=== PATIENT | male | born 1965 | race Caucasian/White ===

== ENCOUNTER 2017-05-27 15:01 | Inpatient (IN) | payer SELFPAY ==
[~2017-05-27] VITALS: Ht 170.2 cm; Wt 93.6 kg
[2017-05-27 15:02] VITALS: BP 135/68; PULSE 123; RESP 20; TEMP 98.8; O2SAT 100
[2017-05-27 15:51] VITALS: BP 137/69; PULSE 116; RESP 20; O2SAT 96
[2017-05-27 15:55] VITALS: RESP 20; O2SAT 98
[2017-05-27] MEDS ORDERED: SODIUM CHLOR 0.9% 1000 ML INJ 1,000 ML IV SCH (15:57)
[2017-05-27 15:59] LABS: AUTOMATED NEUTROPHIL # 14.2 TH/MM3 (1.8-7.7); BASOPHIL # 0.1 TH/MM3 (0-0.2); BASOPHIL % 0.5 % (0.0-2.0); EOSINOPHIL # 0.1 TH/MM3 (0-0.4); EOSINOPHIL % 0.6 % (0.0-4.0); HEMATOCRIT 32.1 % (39.0-51.0); HEMO FLAGS DIFF FINAL; LYMPH % 8.7 % (9.0-44.0); LYMPHOCYTE # 1.5 TH/MM3 (1.0-4.8); MEAN CORPUSCULAR HEMOGLOBIN 28.8 PG (27.0-34.0); MEAN CORPUSCULAR HGB CONC 32.7 % (32.0-36.0); MONO % 7.6 % (0.0-8.0); NEUT % 82.6 % (16.0-70.0); PLATELET COUNT 161 TH/MM3 (150-450); RED BLOOD COUNT 3.64 MIL/MM3 (4.50-5.90); RED CELL DISTRIBUTION WIDTH 17.3 % (11.6-17.2); WHITE BLOOD COUNT 17.2 TH/MM3 (4.0-11.0)
[2017-05-27] MEDS ORDERED: FAMOTIDINE 20 MG/2 ML VIAL IV PUSH ONE (16:00)
[2017-05-27] MEDS ORDERED: ONDANSETRON HCL 4 MG/2 ML VIAL IVP ONE (16:00)
[2017-05-27] MEDS ORDERED: THIAMINE INJ 100 MG in SODIUM CHLORIDE 0.9% INJ 100 ML IV ONE (16:00)
--- NOTE | 2017-05-27 16:06 | PD ---
HPI Chief Complaint: GI Complaint Time Seen by Provider: 15:46 Travel History International Travel<30 days: No Contact w/Intl Traveler<30days: No Traveled to known affect area: No History of Present Illness HPI 49-year-old male complains of generalized malaise and weakness, shortness of breath, abdominal pain and black tarry stool. Patient has history alcohol abuse. Patient states that his last drink was 2 days ago. Patient has history GI bleed from esophageal varices in 2012. Patient denies any headache. Patient denies any chest pain. Patient states that he has shortness of breath and dyspnea on exertion. Patient states that he has mild intermittent abdominal discomfort. Patient denies any back pain. Patient denies any dysuria or frequency. Patient denies any fever chills. PFSH Past Medical History Cirrhosis: Yes Diminished Hearing: No Tetanus Vaccination: > 5 Years Influenza Vaccination: No Past Surgical History Tonsillectomy: Yes Other Surgery: Yes Social History Alcohol Use: Yes Tobacco Use: Yes (1 PPD) Substance Use: No Allergies-Medications (Allergen,Severity, Reaction): Coded Allergies: No Known Allergies (Unverified , 05/27/17) Reported Meds & Prescriptions Reported Meds & Active Scripts Active No Active Prescriptions or Reported Medications Review of Systems General / Constitutional: No: Fever Eyes: No: Visual changes HENT: No: Headaches Cardiovascular: No: Chest Pain or Discomfort Respiratory: No: Shortness of Breath Gastrointestinal: Positive: Abdominal Pain, Hematochezia Genitourinary: No: Dysuria Musculoskeletal: No: Pain Skin: No Rash Neurologic: No: Weakness Psychiatric: No: Depression Endocrine: No: Polydipsia Hematologic/Lymphatic: No: Easy Bruising Physical Exam Narrative GENERAL: Well-nourished, well-developed patient. SKIN: Focused skin assessment warm/dry. HEAD: Normocephalic. EYES: No scleral icterus. No injection or drainage. NECK: Supple, trachea midline. No JVD or lymphadenopathy. CARDIOVASCULAR: Regular rate and rhythm without murmurs, gallops, or rubs. RESPIRATORY: Breath sounds equal bilaterally. No accessory muscle use. GASTROINTESTINAL: Abdomen soft, non-tender, nondistended. Rectal exam Hemoccult positive. MUSCULOSKELETAL: No cyanosis, or edema. BACK: Nontender without obvious deformity. No CVA tenderness. Neurologic exam: Patient's awake alert oriented 3. No obvious focal neurological deficit. Data Data Last Documented VS Vital Signs Date Time Temp Pulse Resp B/P (MAP) Pulse Ox O2 Delivery O2 Flow Rate FiO2 05/27/17 17:56 99 20 135/70 (91) 96 Room Air 05/27/17 15:02 98.8 Orders Orders Complete Blood Count With Diff (05/27/17 15:25) Comprehensive Metabolic Panel (05/27/17 15:25) Prothrombin Time / Inr (Pt) (05/27/17 15:25) Act Partial Throm Time (Ptt) (05/27/17 15:25) Ecg Monitoring (05/27/17 15:25) Orthostatic Vital Signs (05/27/17 15:25) Oximetry (05/27/17 15:25) Oxygen Administration (05/27/17 15:25) Iv Access Insert/Monitor (05/27/17 15:25) Type And Screen (05/27/17 15:25) Electrocardiogram (05/27/17 ) Lipase (05/27/17 15:28) Urinalysis - C+S If Indicated (05/27/17 15:53) Chest, Single Ap (05/27/17 15:53) Alcohol (Ethanol) (05/27/17 15:53) Ondansetron Inj (Zofran Inj) (05/27/17 16:00) Sodium Chlor 0.9% 1000 Ml Inj (Ns 1000 M (05/27/17 15:57) Famotidine Inj (Pepcid Inj) (05/27/17 16:00) Thiamine Inj (Thiamine Inj) (05/27/17 16:00) Sodium Chlorid 0.9%... W/Octreotide Inj (05/27/17 16:11) Labs Laboratory Tests Test 05/27/17 15:01 05/27/17 16:04 White Blood Count 17.2 TH/MM3 Red Blood Count 3.64 MIL/MM3 Hemoglobin 10.5 GM/DL Hematocrit 32.1 % Mean Corpuscular Volume 88.0 FL Mean Corpuscular Hemoglobin 28.8 PG Mean Corpuscular Hemoglobin Concent 32.7 % Red Cell Distribution Width 17.3 % Platelet Count 161 TH/MM3 Mean Platelet Volume 10.9 FL Neutrophils (%) (Auto) 82.6 % Lymphocytes (%) (Auto) 8.7 % Monocytes (%) (Auto) 7.6 % Eosinophils (%) (Auto) 0.6 % Basophils (%) (Auto) 0.5 % Neutrophils # (Auto) 14.2 TH/MM3 Lymphocytes # (Auto) 1.5 TH/MM3 Monocytes # (Auto) 1.3 TH/MM3 Eosinophils # (Auto) 0.1 TH/MM3 Basophils # (Auto) 0.1 TH/MM3 CBC Comment DIFF FINAL Differential Comment Prothrombin Time 14.8 SEC Prothromb Time International Ratio 1.3 RATIO Activated Partial Thromboplast Time 23.2 SEC Blood Urea Nitrogen 59 MG/DL Creatinine 1.28 MG/DL Random Glucose 154 MG/DL Total Protein 7.5 GM/DL Albumin 3.3 GM/DL Calcium Level 8.8 MG/DL Alkaline Phosphatase 89 U/L Aspartate Amino Transf (AST/SGOT) 71 U/L Alanine Aminotransferase (ALT/SGPT) 45 U/L Total Bilirubin 2.2 MG/DL Sodium Level 137 MEQ/L Potassium Level 5.0 MEQ/L Chloride Level 103 MEQ/L Carbon Dioxide Level 21.8 MEQ/L Anion Gap 12 MEQ/L Estimat Glomerular Filtration Rate 60 ML/MIN Ethyl Alcohol Level LESS THAN 3 MG/DL Lipase 355 U/L [facility] Medical Decision Making Medical Screen Exam Complete: Yes Emergency Medical Condition: Yes Interpretation(s) Last Impressions Chest X-Ray 05/27/17 5283 Signed Impressions: Service Date/Time: April 15:59 - CONCLUSION: 1. No acute cardiopulmonary findings. Rick Navas MD 1846 PM. CBC WBC 17.2. Hemoglobin 10.5 hematocrit 32.1. 82 neutrophil. CMP within normal limit. BUN 59. AST 71. Total bili 2.2. INR 1.3. Alcohol Less than 3. Differential Diagnosis Differential diagnosis including GI bleed, dehydration, electrolyte imbalance, anemia, alcohol withdrawal. Narrative Course 49-year-old male generalized malaise and weakness, shortness of breath, abdominal discomfort, black tarry stool. Normal saline solution and 25 cc an hour. Pepcid 20 mg IV. Octreotide drip started. Thiamine 100 mg IV. HemaPrompt Point of Care Internal Pos. & Neg. Controls: Passed Fecal Specimen Occult Blood: Positive Diagnosis Primary Impression: GI bleed Qualified Codes: K92.2 - Gastrointestinal hemorrhage, unspecified Additional Impression: History of alcohol abuse Admitting Information Admitting Physician Requests: Observation Scripts No Active Prescriptions or Reported Meds Chilango Moyer MD May 27, 2017 16:06
[2017-05-27 16:20] LABS: ALT (GPT) 45 U/L (12-78); ANION GAP 12 MEQ/L (5-15); AST (GOT) 71 U/L (15-37); BICARBONATE 21.8 MEQ/L (21.0-32.0); BLOOD UREA NITROGEN 59 MG/DL (7-18); CHLORIDE 103 MEQ/L (98-107); GLOMERULAR FILTRATION RATE 60 ML/MIN (>89); SODIUM (NA) 137 MEQ/L (136-145)
[2017-05-27 16:22] LABS: ALKALINE PHOSPHATASE 89 U/L (45-117); TOTAL BILIRUBIN ADULT 2.2 MG/DL (0.2-1.0)
[2017-05-27 16:23] LABS: APTT (PATIENT) 23.2 SEC (24.3-30.1); INTERNATIONAL NORMALIZED RATIO 1.3 RATIO; PROTHROMBIN TIME - PATIENT 14.8 SEC (9.8-11.6)
--- NOTE | 2017-05-27 16:34 | RADRPT ---
EXAM DATE/TIME: 05/27/2017 15:59 [facility] COMPARISON: No previous studies available for comparison. INDICATIONS : Short of breath MEDICAL HISTORY : Cirrhosis. SURGICAL HISTORY : None. ENCOUNTER: Initial ACUITY: 2 days PAIN SCORE: 5/10 LOCATION: Right lower quadrant abdomen FINDINGS: A single view of the chest demonstrates the lungs to be symmetrically aerated without evidence of mas s, infiltrate or effusion. The cardiomediastinal contours are unremarkable. Osseous structures are intact. CONCLUSION: 1. No acute cardiopulmonary findings. Rick Navas MD on May 27, 2017 at 16:32 Board Certified Radiologist. This report was verified electronically.
[2017-05-27] MEDS: OCTREOTIDE INJ 500 MCG in SODIUM CHLORID 0.9% 500 ML INJ 500 ML IV SCH (17:04)
[2017-05-27 17:56] VITALS: BP 135/70; PULSE 99; RESP 20; O2SAT 96
[2017-05-27 19:41] LABS: BLOOD, URINE NEG (NEG); COMMENT (UR) CULT NOT INDICATED; CULTURE IF INDICATED CULT NOT INDICATED; GLUCOSE,URINE NEG (NEG); KETONE, URINE 10 mg/dL (NEG); NITRITE,URINE NEG (NEG); SQUAMOUS EPITHELIAL CELL URINE <1 /hpf (0-5); URINE COLOR YELLOW (YELLW/STRAW)
[2017-05-27] MEDS ORDERED: SODIUM CHLORIDE 0.9% FLUSH 10 ML FLUSH IV FLUSH PRN (20:30)
[2017-05-27] MEDS ORDERED: NALOXONE HCL 0.4 MG/ML AMP IV PUSH PRN (20:30)
--- NOTE | 2017-05-27 21:06 | HHI.HP ---
[facility] No Primary Care Physician Admission Diagnosis upper GI bleed. History of alcohol abuse. Diagnoses: Chief Complaint: fatigue, short of breath Travel History International Travel<30 Days: No Contact w/Intl Traveler <30 Da: No Traveled to Known Affected Are: No History of Present Illness Written by JOZEF Cantu acting as scribe for [Yuko] on 05/27/17 at 20: 58. 49 y/o male with a history of esophageal varices banding, and cirrhosis (last paracentesis 2012) presented to the ED with complaints of weakness and short of breath. Patient states for the last 2 days he has been very weak, dizzy, short of breath and nausea. He states he does have palpitations with the short of breath. He states he also has tarry stools several times a day. Denies any nausea, vomiting, fever or chills. He states he still drinks about 2-3 times a week, and is not on any medications for portal hypertension. Review of Systems Except as stated in HPI: all other systems reviewed are Neg Past Family Social History Past Medical History esophageal varices banding cirrhosis (last paracentesis 2012) Past Surgical History Tonsillectomy Esophageal banding Ulna nerve repair Vasectomy Pilonidal cyst R knee cartilage removed Reported Medications Reported Meds & Active Scripts Active No Active Prescriptions or Reported Medications Allergies: Coded Allergies: No Known Allergies (Unverified , 05/27/17) Active Ordered Medications Current Medications Medications (Trade) Dose Ordered Sig/Koby Route Start Time Stop Time Status Last Admin Sodium Chloride 1,000 ml @ 125 mls/hr Q8H IV 05/27/17 15:57 05/27/17 23:56 05/27/17 16:11 Octreotide Acetate 500 mcg/ Sodium Chloride 500.5 ml @ 50 mls/hr Q10H1M IV 05/27/17 16:11 05/27/17 17:04 Sodium Chloride 1,000 ml @ 100 mls/hr Q10H IV 05/27/17 20:22 (NS Flush) 2 ml UNSCH PRN IV FLUSH 05/27/17 20:30 (NS Flush) 2 ml BID IV FLUSH 05/27/17 21:00 (Narcan Inj) 0.4 mg UNSCH PRN IV PUSH 05/27/17 20:30 (Vitamin B1) 100 mg DAILY PO 05/28/17 09:00 Pantoprazole Sodium 80 mg/ Sodium Chloride 35 ml @ 420 mls/hr Q5M ONCE IV 05/27/17 21:29 05/27/17 21:33 Pantoprazole Sodium 80 mg/ Sodium Chloride 100 ml @ 10 mls/hr Q10H IV 05/27/17 21:29 Family History Mom: DM Dad: Prostate issues Social History Tobacco use: 1 PPD Alcohol use: 2-3 times a week, 3 cocktails Illicit drug use: Denies Physical Exam Vital Signs Vital Signs Date Time Temp Pulse Resp B/P (MAP) Pulse Ox O2 Delivery O2 Flow Rate FiO2 05/27/17 17:56 99 20 135/70 (91) 96 Room Air 05/27/17 15:55 20 98 Room Air 05/27/17 15:51 116 20 137/69 (91) 96 Room Air 05/27/17 15:02 98.8 123 20 135/68 (90) 100 Room Air Physical Exam GENERAL: This is a well-nourished, well-developed patient, in no apparent distress. SKIN: No rashes, ecchymoses or lesions. Cool and dry. HEAD: Atraumatic. Normocephalic. EYES: Pupils equal round and reactive. ENT: Nose without bleeding, purulent drainage or septal hematoma. Airway patent. NECK: Trachea midline. No JVD or lymphadenopathy. CARDIOVASCULAR: Regular rate and rhythm without murmurs, gallops, or rubs. RESPIRATORY: Clear to auscultation. Breath sounds equal bilaterally. No wheezes , rales, or rhonchi. GASTROINTESTINAL: Abdomen soft, tender, and mildly distended. No guarding. + ascites MUSCULOSKELETAL: Extremities without clubbing, cyanosis, or edema. No calf tenderness. NEUROLOGICAL: Awake and alert. Motor and sensory grossly within normal limits. Normal speech. Laboratory Laboratory Tests Test 05/27/17 15:01 05/27/17 16:04 05/27/17 18:55 White Blood Count 17.2 Red Blood Count 3.64 Hemoglobin 10.5 Hematocrit 32.1 Mean Corpuscular Volume 88.0 Mean Corpuscular Hemoglobin 28.8 Mean Corpuscular Hemoglobin Concent 32.7 Red Cell Distribution Width 17.3 Platelet Count 161 Mean Platelet Volume 10.9 Neutrophils (%) (Auto) 82.6 Lymphocytes (%) (Auto) 8.7 Monocytes (%) (Auto) 7.6 Eosinophils (%) (Auto) 0.6 Basophils (%) (Auto) 0.5 Neutrophils # (Auto) 14.2 Lymphocytes # (Auto) 1.5 Monocytes # (Auto) 1.3 Eosinophils # (Auto) 0.1 Basophils # (Auto) 0.1 CBC Comment DIFF FINAL Differential Comment Prothrombin Time 14.8 Prothromb Time International Ratio 1.3 Activated Partial Thromboplast Time 23.2 Blood Urea Nitrogen 59 Creatinine 1.28 Random Glucose 154 Total Protein 7.5 Albumin 3.3 Calcium Level 8.8 Alkaline Phosphatase 89 Aspartate Amino Transf (AST/SGOT) 71 Alanine Aminotransferase (ALT/SGPT) 45 Total Bilirubin 2.2 Sodium Level 137 Potassium Level 5.0 Chloride Level 103 Carbon Dioxide Level 21.8 Anion Gap 12 Estimat Glomerular Filtration Rate 60 Ethyl Alcohol Level LESS THAN 3 Lipase 355 Urine Color YELLOW Urine Turbidity CLEAR Urine pH 6.0 Urine Specific Moyers 1.022 Urine Protein NEG Urine Glucose (UA) NEG Urine Ketones 10 Urine Occult Blood NEG Urine Nitrite NEG Urine Bilirubin NEG Urine Urobilinogen LESS THAN 2.0 Urine Leukocyte Esterase NEG Urine WBC LESS THAN 1 Urine Squamous Epithelial Cells <1 Microscopic Urinalysis Comment CULT NOT INDICATED Result Diagram: 05/27/17 1501 05/27/17 1501 Imaging Last Impressions Chest X-Ray 05/27/17 1553 Signed Impressions: Service Date/Time: April 15:59 - CONCLUSION: 1. No acute cardiopulmonary findings. Rick Navas MD Caprini VTE Risk Assessment Caprini VTE Risk Assessment: Mod/High Risk (score >= 2) VTE Pharm Contraindication: Active bleeding Caprini Risk Assessment Model Point Value = 1 Point Value = 2 Point Value = 3 Point Value = 5 Age 41-60 Minor surgery BMI > 25 kg/m2 Swollen legs Varicose veins or History of unexplained or recurrent spontaneous Oral contraceptives or hormone replacement Sepsis (< 1 month) Serious lung disease, including pneumonia (< 1 month) Abnormal pulmonary function Acute myocardial infarction Congestive heart failure (< 1 month) History of inflammatory bowel disease Medical patient at bed rest Age 61-74 Arthroscopic surgery Major open surgery (> 45 min) Laparoscopic surgery (> 45 min) Malignancy Confined to bed (> 72 hours) Immobilizing plaster cast Central venous access Age >= 75 History of VTE Family history of VTE Factor V Leiden Prothrombin [id number] Lupus anticoagulant Anticardiolipin antibodies Elevated serum homocysteine Heparin-induced thrombocytopenia Other congenital or acquired thrombophilia Stroke (< 1 month) Elective arthroplasty Hip, pelvis, or leg fracture Acute spinal cord injury (< 1 month) Prophylaxis Regimen Total Risk Factor Score Risk Level Prophylaxis Regimen 0-1 Low Early ambulation 2 Moderate Order ONE of the following: *Sequential Compression Device (SCD) *Heparin 5000 units SQ BID 3-4 Higher Order ONE of the following medications: *Heparin 5000 units SQ TID *Enoxaparin/Lovenox 40 mg SQ daily (WT < 150 kg, CrCl > 30 mL/min) *Enoxaparin/Lovenox 30 mg SQ daily (WT < 150 kg, CrCl > 10-29 mL/min) *Enoxaparin/Lovenox 30 mg SQ BID (WT < 150 kg, CrCl > 30 mL/min) AND/OR *Sequential Compression Device (SCD) 5 or more Highest Order ONE of the following medications: *Heparin 5000 units SQ TID (Preferred with Epidurals) *Enoxaparin/Lovenox 40 mg SQ daily (WT < 150 kg, CrCl > 30 mL/min) *Enoxaparin/Lovenox 30 mg SQ daily (WT < 150 kg, CrCl > 10-29 mL/min) *Enoxaparin/Lovenox 30 mg SQ BID (WT < 150 kg, CrCl > 30 mL/min) AND *Sequential Compression Device (SCD) Assessment and Plan Problem List: (1) GI bleed ICD Code: K92.2 - Gastrointestinal hemorrhage, unspecified Status: Acute (2) History of alcohol abuse ICD Code: Z87.898 - Personal history of other specified conditions Status: Chronic Assessment and Plan 49 y/o male with a history of esophageal varices banding, and cirrhosis (last paracentesis 2012) presented to the ED with complaints of weakness and short of breath. GI Bleed, acute, Hgb 10.5 --> 9.9, patient states he has black tarry stools -Consult GI -Serial H&H -Pepsid IV given in ED, Protonix drip and Sandostatin drip started -NPO -Transfuse 2 units now due to active bleeding, drop in hemoglobin Leukocytosis, wbc 17.2, likely reactive -Labs in AM Alcohol abuse -Encouraged to quit -Withdrawal precautions -Thiamine IV daily DVT prophylaxis: SCDs, hold chemical due to bleeding This note was transcribed by scribe [Roxanna Del Toro]. I, Dr. Nabila Huntley personally performed the history, physical exam, and medical decision making; and confirmed the accuracy of the information in the transcribed note. Authenticated by Dr. Nabila Huntley on 05/27/17 at 20:58. Discussed Condition With Patient and RN Physician Certification 2 Midnight Certification Type: Admission for Inpatient Services Order for Inpatient Services The services are ordered in accordance with Medicare regulations or non- Medicare payer requirements, as applicable. In the case of services not specified as inpatient-only, they are appropriately provided as inpatient services in accordance with the 2-midnight benchmark. Estimated LOS (days): 2 days is the estimated time the patient will need to remain in the hospital, assuming treatment plan goals are met and no additional complications. Post-Hospital Plan: Home Problem Qualifiers (1) GI bleed: Qualified Codes: K92.2 - Gastrointestinal hemorrhage, unspecified Roxanna Del Toro May 27, 2017 21:06 Nabila Huntley MD May 28, 2017 10:20
[2017-05-27] MEDS ORDERED: PANTOPRAZOLE INJ 80 MG in SODIUM CHLORIDE 0.9% INJ 35 ML IV ONE (21:29)
[2017-05-27 21:40] LABS: REVIEW FLAG FINAL
[2017-05-27 21:45] VITALS: BP 123/69; PULSE 90; RESP 18; TEMP 98.5; O2SAT 96
[2017-05-27] MEDS: SODIUM CHLOR 0.9% 1000 ML INJ 1,000 ML IV SCH (22:42)
[2017-05-27] MEDS: SODIUM CHLORIDE 0.9% FLUSH 10 ML FLUSH IV FLUSH SCH (22:42)
[2017-05-27] MEDS ORDERED: SODIUM CHLOR 0.9% 250 ML INJ 250 ML IV ONE (22:45)
[2017-05-28] VITALS (11 sets, daily range): BP systolic 98–121; BP diastolic 59–97; PULSE 73–95; RESP 16–18; TEMP 97.1–98.1; O2SAT 95–100
[2017-05-28] MEDS: PANTOPRAZOLE INJ 80 MG in SODIUM CHLORIDE 0.9% INJ 100 ML IV SCH ×3 (00:17→17:29)
[2017-05-28] MEDS: OCTREOTIDE INJ 500 MCG in SODIUM CHLORID 0.9% 500 ML INJ 500 ML IV SCH ×3 (03:02→21:17)
[2017-05-28] MEDS: SODIUM CHLOR 0.9% 1000 ML INJ 1,000 ML IV SCH ×3 (06:22→16:22)
[2017-05-28] MEDS: THIAMINE HCL 100 MG TAB PO SCH (08:46)
[2017-05-28] MEDS: SODIUM CHLORIDE 0.9% FLUSH 10 ML FLUSH IV FLUSH SCH ×2 (08:47→21:17)
--- NOTE | 2017-05-28 10:16 | EKG ---
Date Performed: 05/27/2017 Time Performed: 15:32:01 PTAGE: 49 years EKG: SINUS TACHYCARDIA POSSIBLE LEFT ATRIAL ENLARGEMENT INDETERMINATE AXIS POSSIBLE RIGHT VENTRI CULAR CONDUCTION DELAY ABNORMAL RHYTHM ECG NO PREVIOUS TRACING DOCTOR: Robinson Lin Interpretating Date/Time 05/28/2017 10:12:33
--- NOTE | 2017-05-28 10:39 | HHI.PR ---
Subjective Remarks no complains of abdominal pain or fever or chills black tarry stools last evening history of cirrhosis secondary to alcohol diagnosed in 2013- in [place] last episode of GIB then- band ligation done- for esophageal varices- 2012 last drink was 3 days ago Objective Vitals Vital Signs Date Time Temp Pulse Resp B/P (MAP) Pulse Ox O2 Delivery O2 Flow Rate FiO2 05/28/17 08:00 97.4 80 16 112/59 (76) 98 05/28/17 07:35 97.4 80 16 112/59 97 05/28/17 05:10 97.5 79 16 111/60 96 05/28/17 04:54 97.7 77 18 101/62 99 05/28/17 03:40 97.8 85 18 116/65 96 05/28/17 01:05 98.1 90 17 121/66 98 05/28/17 00:45 98.1 95 18 119/69 97 05/27/17 23:38 05/27/17 21:45 98.5 90 18 123/69 (87) 96 05/27/17 17:56 99 20 135/70 (91) 96 Room Air 05/27/17 15:55 20 98 Room Air 05/27/17 15:51 116 20 137/69 (91) 96 Room Air 05/27/17 15:02 98.8 123 20 135/68 (90) 100 Room Air I/O 05/27/17 05/27/17 05/27/17 05/28/17 05/28/17 05/28/17 07:00 15:00 23:00 07:00 15:00 23:00 Intake Total 0 ml 973 ml 402 ml Output Total 500 ml 450 ml Balance -500 ml 523 ml 402 ml Intake Oral 0 ml 0 ml IV Total 553 ml Packed Cells 400 ml 400 ml Blood Product IV Normal Saline Flush 20 ml 2 ml Output Urine Total 500 ml 450 ml # Bowel Movements 0 0 Result Diagram: 05/27/17212005/27/17 1501 Imaging Last Impressions Chest X-Ray 05/27/17 1553 Signed Impressions: Service Date/Time: April 15:59 - CONCLUSION: 1. No acute cardiopulmonary findings. Rcik Navas MD Objective Remarks awake and alert, anicteric lungs clear regular rhythm abdomen- soft, good bowel sounds, nontender, + fluid wave extremities no edema no scrotal swelling neuro exam- non focal A/P Problem List: (1) GI bleed ICD Code: K92.2 - Gastrointestinal hemorrhage, unspecified Status: Acute (2) History of alcohol abuse ICD Code: Z87.898 - Personal history of other specified conditions Status: Chronic Assessment and Plan 49 y/o male with a history of esophageal varices banding, and cirrhosis (last paracentesis 2012) presented to the ED with complaints of weakness and short of breath. GI Bleed, acute, Hgb 10.5 --> 9.9. History of GIB secondary to varices from alcoholic liver cirrhosis Acute anemia -Consult GI. get US -Serial H&H S/P 2 units RBC - Protonix drip and Sandostatin drip started -NPO -S/P Transfuse 2 units now due to active bleeding, drop in hemoglobin -check CBCnow Leukocytosis, wbc 17.2, likely reactive R/o SBP with ascites on exam get US of abdomen- check for ascite- if significant - do paracentesis with fluid studies CBC today PRAVEENA secondary to GI bleeding and likely poor po with chronic alcohlism on gentle hydration ff BMP todfay Alcohol abuse -Encouraged to quit. CIWAprotocol -Withdrawal precautions -Thiamine IV daily DVT prophylaxis: SCDs, hold chemical due to bleeding Problem Qualifiers (1) GI bleed: Qualified Codes: K92.2 - Gastrointestinal hemorrhage, unspecified Macario Grayson MD May 28, 2017 10:39
[2017-05-28] MEDS ORDERED: LORazepam 2 MG/ML VIAL IV PUSH PRN ×4 (10:45)
[2017-05-28] MEDS ORDERED: SODIUM CHLORIDE 0.9% FLUSH 10 ML FLUSH IV FLUSH PRN (10:45)
[2017-05-28] MEDS ORDERED: LORazepam 2 MG TAB PO PRN (10:45)
[2017-05-28] MEDS ORDERED: FLUMAZENIL 0.5 MG/5 ML VIAL IV PUSH PRN (10:45)
[2017-05-28] MEDS ORDERED: LORazepam 1 MG TAB PO PRN (10:45)
--- NOTE | 2017-05-28 11:51 | RADRPT ---
EXAM DATE/TIME: 05/28/2017 10:47 [facility] COMPARISON: No previous studies available for comparison. INDICATIONS : Cirrhosis. MEDICAL HISTORY : Hypertension. Cirrhosis. Esopageal varices. SURGICAL HISTORY : Tonsillectomy. Esophageal banding. Right arm surgery. Left knee surgery. ENCOUNTER: Initial ACUITY: 3 days PAIN SCORE: 0/10 LOCATION: Abdomen. MEASUREMENTS: LIVER: 19.5 cm length COMMON DUCT: 4 mm RIGHT KIDNEY: 10.8 x 5.8 x 5.2 cm LEFT KIDNEY: 11.6 x 6.8 x 6.1 cm SPLEEN: 12.9 cm length AORTA: 1.9cm maximal FINDINGS: LIVER: The liver appears somewhat large. There is heterogeneous echotexture. COMMON DUCT: No intraluminal mass or stone visualized. GALLBLADDER: There is some mild thickening of the gallbladder wall. No significant pericholecystic fluid or stones are identified. PANCREAS: The visualized portions are within normal limits. RIGHT KIDNEY: There is no hydronephrosis. The exam does demonstrate a 1.2 x 0.5 x 1.0 cm calcification in the midpo le. LEFT KIDNEY: No hydronephrosis, stone or mass. SPLEEN: No focal lesion. AORTA: Non aneurysmal. IVC: Within normal limits. CONCLUSION: 1. Mild thickening of the gallbladder wall but no stones or sludge identified. 2. Enlarged liver with heterogeneous echotexture. No mass or biliary obstruction seen. 3. 1.2 x 0.5 x 1.0 cm stone seen in the midpole of the right kidney. There is no hydronephrosis. Rick Navas MD on May 28, 2017 at 11:46 Board Certified Radiologist. This report was verified electronically.
[2017-05-28] MEDS ORDERED: PROPOFOL 200 MG/20 ML AMP IV ONE (12:00)
[2017-05-28] MEDS ORDERED: LIDOCAINE HCL 1% PF 5 ML AMPULE OTHER ONE (12:00)
--- NOTE | 2017-05-28 14:16 | PD.CONS ---
HPI History of Present Illness This is a 49 year old male with hx UGIB who presented with wewakness, SOB, black tarry stool. His noticed black stools 2 d ago and yesterday experienced some nausea and lack of energy and SOB. Denies vomiting, abd pain, weight loss. Denies NSAID use. Had EGD and colonoscopy in 2013 in [place] but can recall no details other than that the EGD was for bleeding and bands or clips were applied. He had been having black stool at that time. He says he was formerly a heavy drinker but currently has 2-3 vodka drinks 2-3 times per week. He denies other health problems but per EMR he does have history of cirrhosis and has had parecentesis in past. (Ju Pena) PFSH Past Medical History esophageal varices banding cirrhosis (last paracentesis 2012) Past Surgical History Tonsillectomy Esophageal banding Ulna nerve repair Vasectomy Pilonidal cyst R knee cartilage removed (Ju Pena) Coded Allergies: No Known Allergies (Unverified , 05/27/17) Family History Mom: DM Dad: Prostate issues Social History Tobacco use: 1 PPD Alcohol use: 2-3 times a week, 3 cocktails Illicit drug use: Denies (Ju Pena) Review of Systems Constitutional: COMPLAINS OF: Fatigue, DENIES: Fever Eyes: DENIES: Blurred vision Ears, nose, mouth, throat: DENIES: Hearing loss Respiratory: DENIES: Hemoptysis Cardiovascular: DENIES: Chest pain Gastrointestinal: COMPLAINS OF: Black stools, Nausea, DENIES: Abdominal pain, Bloody stools, Constipation, Diarrhea, Vomiting, Hematemesis Genitourinary: DENIES: Hematuria Musculoskeletal: DENIES: Joint Swelling Integumentary: DENIES: Jaundice Neurologic: DENIES: Abnormal gait Psychiatric: DENIES: Confusion (Ju Pena) GI Exam Vitals I&O Vital Signs Date Time Temp Pulse Resp B/P (MAP) Pulse Ox O2 Delivery O2 Flow Rate FiO2 05/28/17 08:00 97.4 80 16 112/59 (76) 98 05/28/17 07:35 97.4 80 16 112/59 97 05/28/17 05:10 97.5 79 16 111/60 96 05/28/17 04:54 97.7 77 18 101/62 99 05/28/17 03:40 97.8 85 18 116/65 96 05/28/17 01:05 98.1 90 17 121/66 98 05/28/17 00:45 98.1 95 18 119/69 97 05/27/17 23:38 05/27/17 21:45 98.5 90 18 123/69 (87) 96 05/27/17 17:56 99 20 135/70 (91) 96 Room Air 05/27/17 15:55 20 98 Room Air 05/27/17 15:51 116 20 137/69 (91) 96 Room Air 05/27/17 15:02 98.8 123 20 135/68 (90) 100 Room Air I/O 05/27/17 05/27/17 05/27/17 05/28/17 05/28/17 05/28/17 07:00 15:00 23:00 07:00 15:00 23:00 Intake Total 0 ml 973 ml 402 ml Output Total 500 ml 450 ml Balance -500 ml 523 ml 402 ml Intake Oral 0 ml 0 ml IV Total 553 ml Packed Cells 400 ml 400 ml Blood Product IV Normal Saline Flush 20 ml 2 ml Output Urine Total 500 ml 450 ml # Bowel Movements 0 0 Imaging Last Impressions Abdomen Ultrasound 05/28/17 0000 Signed Impressions: Service Date/Time: Sunday, May 28, 2017 10:47 - CONCLUSION: 1. Mild thickening of the gallbladder wall but no stones or sludge identified. 2. Enlarged liver with heterogeneous echotexture. No mass or biliary obstruction seen. 3. 1.2 x 0.5 x 1.0 cm stone seen in the midpole of the right kidney. There is no hydronephrosis. Rick Navas MD Chest X-Ray 05/27/17 1553 Signed Impressions: Service Date/Time: April 15:59 - CONCLUSION: 1. No acute cardiopulmonary findings. Rick Navas MD Laboratory Test 05/27/17 15:01 05/27/17 16:04 05/27/17 18:55 05/27/17 21:21 White Blood Count 17.2 TH/MM3 Red Blood Count 3.64 MIL/MM3 Hemoglobin 10.5 GM/DL 9.9 GM/DL Hematocrit 32.1 % 31.0 % Mean Corpuscular Volume 88.0 FL Mean Corpuscular Hemoglobin 28.8 PG Mean Corpuscular Hemoglobin Concent 32.7 % Red Cell Distribution Width 17.3 % Platelet Count 161 TH/MM3 Mean Platelet Volume 10.9 FL Neutrophils (%) (Auto) 82.6 % Lymphocytes (%) (Auto) 8.7 % Monocytes (%) (Auto) 7.6 % Eosinophils (%) (Auto) 0.6 % Basophils (%) (Auto) 0.5 % Neutrophils # (Auto) 14.2 TH/MM3 Lymphocytes # (Auto) 1.5 TH/MM3 Monocytes # (Auto) 1.3 TH/MM3 Eosinophils # (Auto) 0.1 TH/MM3 Basophils # (Auto) 0.1 TH/MM3 CBC Comment DIFF FINAL Differential Comment Prothrombin Time 14.8 SEC Prothromb Time International Ratio 1.3 RATIO Activated Partial Thromboplast Time 23.2 SEC Blood Urea Nitrogen 59 MG/DL Creatinine 1.28 MG/DL Random Glucose 154 MG/DL Total Protein 7.5 GM/DL Albumin 3.3 GM/DL Calcium Level 8.8 MG/DL Alkaline Phosphatase 89 U/L Aspartate Amino Transf (AST/SGOT) 71 U/L Alanine Aminotransferase (ALT/SGPT) 45 U/L Total Bilirubin 2.2 MG/DL Sodium Level 137 MEQ/L Potassium Level 5.0 MEQ/L Chloride Level 103 MEQ/L Carbon Dioxide Level 21.8 MEQ/L Anion Gap 12 MEQ/L Estimat Glomerular Filtration Rate 60 ML/MIN Ethyl Alcohol Level LESS THAN 3 MG/DL Lipase 355 U/L Urine Color YELLOW Urine Turbidity CLEAR Urine pH 6.0 Urine Specific [place] 1.022 Urine Protein NEG mg/dL Urine Glucose (UA) NEG mg/dL Urine Ketones 10 mg/dL Urine Occult Blood NEG Urine Nitrite NEG Urine Bilirubin NEG Urine Urobilinogen LESS THAN 2.0 MG/DL Urine Leukocyte Esterase NEG Urine WBC LESS THAN 1 /hpf Urine Squamous Epithelial Cells <1 /hpf Microscopic Urinalysis Comment CULT NOT INDICATED Physical Examination HEENT: PERRL; normocephalic; atraumatic; no jaundice. CHEST: CTA CARDIAC: RRR ABDOMEN: Soft, nondistended, nontender; + hepatomegaly; bowel sounds are present in all four quadrants. EXTREMITIES: No clubbing, cyanosis, or edema. SKIN: Normal; no rash; no jaundice. SHIP CARPENTER: No focal deficits; alert and oriented times three. (Ju Pena) Assessment and Plan Plan ASSESSMENT - anemia - normocytic, 10.5 on admission and dropped to 9.9 today - melena - hx UGI, EGD 2012 with bands applied. probable varices. on pepcid, sandostatin. - elevated LFTs - on admission Tbil 2.2, AST 71, ALT 45, ALP 89. US shows enlarged liver with heterogenous echotexture hepatomegaly on exam PLAN - EGD today - obtain consent - NPO - monitor HH - continue pepcid - continue sandostatin - supportive care - further recs to follow This pt seen by myself and Dr Brenner and this note is written on his behalf (Ju Pena) Plan Patient was seen and examined, agree with above Notes, possible upper GI bleed could be secondary to esophageal varices, peptic ulcer disease, gastropathy, plan for upper endoscopy today. He had colonoscopy a few years ago which was unremarkable She'll still have cirrhosis and still actively drinking I informed him about the risk of that and he stated that he will try to quit, we will watch for DT and monitor liver function tests (Izabel Brenner MD) Ju Pena May 28, 2017 14:16 Izabel Brenner MD May 28, 2017 15:23
[2017-05-28] MEDS ORDERED: INSULIN HUMAN REGULAR 1,000 UNITS/10 ML VIAL SQ PRN (14:45)
[2017-05-28] MEDS ORDERED: LACTATED RINGER'S 1000 ML IV PRN (14:45)
[2017-05-28] MEDS ORDERED: POVIDONE IODINE 5% (ANTISEPSIS KIT) 4 APPLICATIONS EACH NARE PRN (14:45)
[2017-05-28] MEDS ORDERED: SODIUM CHLORID 0.9% 500 ML IV PRN (14:45)
[2017-05-28] MEDS ORDERED: METOPROLOL TARTRATE 25 MG TAB PO PRN (14:45)
[2017-05-28] MEDS ORDERED: CHLORHEXIDINE GLUCONATE 2 % 1 PACK (2 CLOTHS) TOPICAL PRN (14:45)
--- NOTE | 2017-05-28 15:34 | PD.PROCEDR ---
GI Procedure PROCEDURE PERFORMED Upper endoscopy with biopsy INDICATION FOR PROCEDURE Upper GI bleed, anemia, history of cirrhosis PROCEDURE: The procedure, risks and benefits were discussed with Mr. Callahan and informed consent was obtained. Anesthesia sedated him with Diprivan. He was placed in the left lateral decubitus position. EGD: The Pentax videoscope was introduced through the oropharynx and advanced to the second portion of the duodenum under direct visualization. Retroflexion was performed in the stomach. FINDINGS: Grade 1-2 esophageal varices 3 columns Severe gastropathy throughout the stomach no active bleeding but most likely the reason for the anemia biopsy was done Severe duodenitis, ESTIMATED BLOOD LOSS: None SPECIMENS REMOVED: Body of the stomach COMPLICATIONS: None IMPRESSION: Severe gastropathy most likely the reason for the lead and related to cirrhosis Grade 1-2 esophageal varices no active bleeding deflated with insufflation of air PLAN: Avoid alcohol completely Start liquid diet Watch for DT Follow up biopsy Patient would benefit 1 stable from Inderal or other beta chelita to reduce portal hypertension Patient will need ultrasound and alpha-fetoprotein every 6 months Monitor H&H with packed RBC as needed Follow up as an outpatient in a few weeks Izabel Brenner MD May 28, 2017 15:34
[2017-05-28] MEDS ORDERED: *RESP: ALBUTEROL 2.5 MG/3 ML NEB (PRN) PERIprocedural Use ONLY NEB ONE (15:48)
[2017-05-28] MEDS ORDERED: DO NOT ADM ANY ANTICOAGULANT DRUGS PRN (15:52)
[2017-05-28 22:58] LABS: AUTOMATED NEUTROPHIL # 11.7 TH/MM3 (1.8-7.7); BASOPHIL # 0.1 TH/MM3 (0-0.2); BASOPHIL % 0.6 % (0.0-2.0); EOSINOPHIL # 0.2 TH/MM3 (0-0.4); EOSINOPHIL % 1.5 % (0.0-4.0); LYMPH % 5.7 % (9.0-44.0); LYMPHOCYTE # 0.8 TH/MM3 (1.0-4.8); MEAN CELL VOLUME 90.5 FL (80.0-100.0); MEAN CORPUSCULAR HEMOGLOBIN 29.1 PG (27.0-34.0); MEAN CORPUSCULAR HGB CONC 32.1 % (32.0-36.0); NEUT % 84.2 % (16.0-70.0); PLATELET COUNT 99 TH/MM3 (150-450); RED BLOOD COUNT 3.43 MIL/MM3 (4.50-5.90); RED CELL DISTRIBUTION WIDTH 16.3 % (11.6-17.2); WHITE BLOOD COUNT 13.9 TH/MM3 (4.0-11.0)
[2017-05-28 23:34] LABS: HEMO FLAGS AUTO DIFF
[2017-05-28 23:35] LABS: OVALOCYTES 1+ (NORMAL); PLATELET ESTIMATE SMEAR LOW (NORMAL); PLATELET MORPHOLOGY NORMAL (NORMAL); SCAN/DIFF AUTO DIFF CONFIRMED
[2017-05-29 00:08] LABS: BICARBONATE 22.2 MEQ/L (21.0-32.0); POTASSIUM 3.7 MEQ/L (3.5-5.1)
[2017-05-29 00:10] VITALS: BP 105/58; PULSE 82; RESP 18; TEMP 99.4; O2SAT 98
[2017-05-29] MEDS: PANTOPRAZOLE INJ 80 MG in SODIUM CHLORIDE 0.9% INJ 100 ML IV SCH (02:48)
[2017-05-29] MEDS: SODIUM CHLOR 0.9% 1000 ML INJ 1,000 ML IV SCH (02:51)
[2017-05-29 04:24] VITALS: BP 102/59; PULSE 72; RESP 18; TEMP 97.7; O2SAT 97
[2017-05-29 08:00] VITALS: BP 120/70; PULSE 82; RESP 18; TEMP 96.7; O2SAT 97
[2017-05-29] MEDS: SODIUM CHLORIDE 0.9% FLUSH 10 ML FLUSH IV FLUSH SCH (09:00)
--- NOTE | 2017-05-29 09:24 | HHI.PR ---
Subjective Remarks no difficulty swalloiwing, no pain no melena or hematochezia Objective Vitals Vital Signs Date Time Temp Pulse Resp B/P (MAP) Pulse Ox O2 Delivery O2 Flow Rate FiO2 05/29/17 04:24 97.7 72 18 102/59 (73) 97 05/29/17 00:10 99.4 82 18 105/58 (74) 98 05/28/17 21:10 83 05/28/17 20:33 98.1 84 18 98/62 (74) 98 05/28/17 16:30 97.8 78 16 113/65 (81) 93 Nasal Cannula 3 05/28/17 16:15 82 17 114/62 (79) 94 Nasal Cannula 4 05/28/17 16:00 79 14 111/61 (78) 91 Nasal Cannula 5 05/28/17 16:00 97.6 73 16 118/97 (104) 95 05/28/17 15:52 77 14 91 Aerosol Mask 8 05/28/17 15:50 79 14 89 Aerosol Mask 8 05/28/17 15:48 97.9 81 16 120/57 (78) 92 Simple Mask 8 05/28/17 12:00 97.1 76 16 121/64 (83) 100 I/O 05/28/17 05/28/17 05/28/17 05/29/17 05/29/17 05/29/17 07:00 15:00 23:00 07:00 15:00 23:00 Intake Total 973 ml 952.5 ml 1050 ml 1841.5 ml Output Total 450 ml 700 ml 600 ml Balance 523 ml 952.5 ml 350 ml 1241.5 ml Intake Oral 0 ml 360 ml 120 ml IV Total 553 ml 550.5 ml 490 ml 1721.5 ml Packed Cells 400 ml 400 ml Blood Product IV Normal Saline Flush 20 ml 2 ml Other 200 ml Output Urine Total 450 ml 700 ml 600 ml # Voids 2 # Bowel Movements 0 1 0 Result Diagram: 05/28/17222905/28/172229 Imaging Last Impressions Abdomen Ultrasound 05/28/17 0000 Signed Impressions: Service Date/Time: Sunday, May 28, 2017 10:47 - CONCLUSION: 1. Mild thickening of the gallbladder wall but no stones or sludge identified. 2. Enlarged liver with heterogeneous echotexture. No mass or biliary obstruction seen. 3. 1.2 x 0.5 x 1.0 cm stone seen in the midpole of the right kidney. There is no hydronephrosis. Rick Navas MD Chest X-Ray 05/27/17 1553 Signed Impressions: Service Date/Time: April 15:59 - CONCLUSION: 1. No acute cardiopulmonary findings. Rick Navas MD Objective Remarks awake and alert, anicteric, no tremors lungs clear regular rhythm abdomen- soft, good bowel sounds, nontender, good bowel sounds extremities no edema no scrotal swelling neuro exam- non focal gait steady Procedures 05/28- EGD- severe duodenitis, esophageal varices no active bleeding noted A/P Problem List: (1) GI bleed ICD Code: K92.2 - Gastrointestinal hemorrhage, unspecified Status: Acute (2) History of alcohol abuse ICD Code: Z87.898 - Personal history of other specified conditions Status: Chronic Assessment and Plan 49 y/o male with a history of esophageal varices banding, and cirrhosis (last paracentesis 2012) presented to the ED with complaints of weakness and short of breath. Acute anemia alcoholic liver cirrhosis with portal hypertension S/P EGD with duodenitis and varices Acute anemia - change to po PPI advance diet consider adding BB in the future as OP- BP in the 100s Leukocytosis, wbc 17.2, likely reactive -WBC improve- afebrile PRAVEENA secondary to GI bleeding and likely poor po with chronic alcohlism BMP improved advise on adequate po intake Alcohol abuse- on weekends, no DTs -Encouraged to quit. CIWAprotocol -Withdrawal precautions - counselled- states occasional weekends - DC home today- will set up with a PCP- patient states he just got a new job and will enroll to get insurance ff up with GI as OP Diet regular- , no alcohol NO nSAID Protonix 50 mg po daily avoid NSAIds Advise off work may go back to work in 10 days Problem Qualifiers (1) GI bleed: Qualified Codes: K92.2 - Gastrointestinal hemorrhage, unspecified Macario Grayson MD May 29, 2017 09:24
[2017-05-29] MEDS ORDERED: PANTOPRAZOLE SOD 40 MG DELAYED RELEASE TAB PO SCH (09:30)
[2017-05-29] MEDS ORDERED: PANT40TA3 PO (09:35)
[2017-05-29] MEDS: OCTREOTIDE INJ 500 MCG in SODIUM CHLORID 0.9% 500 ML INJ 500 ML IV SCH (10:34)
[2017-05-29] MEDS: THIAMINE HCL 100 MG TAB PO SCH (10:34)
[2017-05-29 12:00] VITALS: BP 137/77; PULSE 69; RESP 18; TEMP 97.4; O2SAT 97
--- NOTE | 2017-05-29 15:37 | HHI.GIFU ---
Subjective Remarks Lying in bed. No complaints. States he is being discharged home today. (Shawnee Lomeli) Objective Vitals I&O Vital Signs Date Time Temp Pulse Resp B/P (MAP) Pulse Ox O2 Delivery O2 Flow Rate FiO2 05/29/17 12:00 97.4 69 18 137/77 (97) 97 05/29/17 08:00 96.7 82 18 120/70 (87) 97 05/29/17 04:24 97.7 72 18 102/59 (73) 97 05/29/17 00:10 99.4 82 18 105/58 (74) 98 05/28/17 21:10 83 05/28/17 20:33 98.1 84 18 98/62 (74) 98 05/28/17 16:30 97.8 78 16 113/65 (81) 93 Nasal Cannula 3 05/28/17 16:15 82 17 114/62 (79) 94 Nasal Cannula 4 05/28/17 16:00 79 14 111/61 (78) 91 Nasal Cannula 5 05/28/17 16:00 97.6 73 16 118/97 (104) 95 05/28/17 15:52 77 14 91 Aerosol Mask 8 05/28/17 15:50 79 14 89 Aerosol Mask 8 05/28/17 15:48 97.9 81 16 120/57 (78) 92 Simple Mask 8 I/O 05/28/17 05/28/17 05/28/17 05/29/17 05/29/17 05/29/17 07:00 15:00 23:00 07:00 15:00 23:00 Intake Total 973 ml 952.5 ml 1050 ml 1841.5 ml Output Total 450 ml 700 ml 600 ml Balance 523 ml 952.5 ml 350 ml 1241.5 ml Intake Oral 0 ml 360 ml 120 ml IV Total 553 ml 550.5 ml 490 ml 1721.5 ml Packed Cells 400 ml 400 ml Blood Product IV Normal Saline Flush 20 ml 2 ml Other 200 ml Output Urine Total 450 ml 700 ml 600 ml # Voids 2 # Bowel Movements 0 1 0 Laboratory Laboratory Tests Test 05/28/17 22:30 White Blood Count 13.9 Red Blood Count 3.43 Hemoglobin 10.0 Hematocrit 31.0 Mean Corpuscular Volume 90.5 Mean Corpuscular Hemoglobin 29.1 Mean Corpuscular Hemoglobin Concent 32.1 Red Cell Distribution Width 16.3 Platelet Count 99 Mean Platelet Volume 10.4 Neutrophils (%) (Auto) 84.2 Lymphocytes (%) (Auto) 5.7 Monocytes (%) (Auto) 8.0 Eosinophils (%) (Auto) 1.5 Basophils (%) (Auto) 0.6 Neutrophils # (Auto) 11.7 Lymphocytes # (Auto) 0.8 Monocytes # (Auto) 1.1 Eosinophils # (Auto) 0.2 Basophils # (Auto) 0.1 CBC Comment AUTO DIFF Differential Comment AUTO DIFF CONFIRMED Platelet Estimate LOW Platelet Morphology Comment NORMAL Ovalocytes 1+ Blood Urea Nitrogen 38 Creatinine 1.07 Random Glucose 103 Calcium Level 7.8 Sodium Level 140 Potassium Level 3.7 Chloride Level 109 Carbon Dioxide Level 22.2 Anion Gap 9 Estimat Glomerular Filtration Rate 74 Imaging Last Impressions Abdomen Ultrasound 05/28/17 0000 Signed Impressions: Service Date/Time: Sunday, May 28, 2017 10:47 - CONCLUSION: 1. Mild thickening of the gallbladder wall but no stones or sludge identified. 2. Enlarged liver with heterogeneous echotexture. No mass or biliary obstruction seen. 3. 1.2 x 0.5 x 1.0 cm stone seen in the midpole of the right kidney. There is no hydronephrosis. Rick Navas MD Chest X-Ray 05/27/17 1553 Signed Impressions: Service Date/Time: April 15:59 - CONCLUSION: 1. No acute cardiopulmonary findings. Rick Navas MD Physical Exam HEENT: Normocephalic; atraumatic; no jaundice. Throat is clear. NECK: Neck is supple CHEST: CTA CARDIAC: RRR with no murmur gallop or rubs. ABDOMEN: Soft, nondistended, nontender; hepatosplenomegaly; bowel sounds are present. EXTREMITIES: No clubbing, cyanosis, or edema. SKIN: Normal; no rash; no jaundice. STONE SETTER METAL OPTICAL FRAMES: No focal deficits; alert and oriented x 3 (Shawnee Lomeli) Assessment and Plan Plan ASSESSMENT - Anemia, normocytic, 10.5 on admission and dropped to 9.9 on 05/27. HH 06/29 (). - Melena, hx UGI, EGD 2012 with bands applied. On Pepcid, Sandostatin. EGD --Severe gastropathy most likely the reason for the lead and related to cirrhosis. Grade 1-2 esophageal varices no active bleeding deflated with insufflation of air. - Elevated LFTs - on admission Tbil 2.2, AST 71, ALT 45, ALP 89 (05/27). US shows enlarged liver with heterogenous echotexture. Hepatomegaly on exam. + Alcohol abuse PLAN - Okay to discharge from a GI standpoint - Educated patient to avoid alcohol completely - Followup with GI as outpatient in a few weeks - Will need US and alpha-fetoprotein every 6 months - Await biopsy results Patient seen and examined by Dr. Brenner and myself and this note is written on his behalf. (Shawnee Lomeli) Plan Agree with above note, alcohol liver disease most likely, patient was instructed to avoid alcohol, she is going home today (Izabel Brenner MD) Shawnee Lomeli May 29, 2017 15:37 Izabel Brenner MD May 29, 2017 20:52
== END 2017-05-29 17:45 | disposition home or self-care (01) | DRG 378 ==
LOC: EDBD → NEPE 15:01 → UNDOADMOB 19:24 → NEDA 19:24 → NEDH 19:24 → OBSVTOIN 21:15 → N06A 21:48
PROVIDERS: ADMIT Internal Medicine; ATTEND Internal Medicine
PROC: 30233N1 Transfusion of Nonautologous Red Blood Cells into Peripheral Vein, Percutaneous Approach (ICD-10-PCS; 2017-05-28)
PROC: 0DB68ZX Excision of Stomach, Via Natural or Artificial Opening Endoscopic, Diagnostic (ICD-10-PCS; principal; 2017-05-28 15:15)
DX: K92.2 Gastrointestinal hemorrhage, unspecified (principal); N17.9 Acute kidney failure, unspecified; K76.6 Portal hypertension; D64.9 Anemia, unspecified; I85.10 Secondary esophageal varices without bleeding; K70.30 Alcoholic cirrhosis of liver without ascites; F17.210 Nicotine dependence, cigarettes, uncomplicated; D72.829 Elevated white blood cell count, unspecified; K29.80 Duodenitis without bleeding; Y90.0 Blood alcohol level of less than 20 mg/100 ml; F10.20 Alcohol dependence, uncomplicated; K31.89 Other diseases of stomach and duodenum
CPT/HCPCS: 36430; 71010; 76700; 80048; 80053; 80307; 81001; 83690; 85014; 85018; 85025; 85610; 85730; 86850; 86900; 86901; 86920; 88305; 88312; 93005; 94640; 96365; 96366; 96368; 96375; C9113; J2354; J2405; J3411; J7030; J7040; J7050; J7613; P9016

== ENCOUNTER 2017-06-04 19:13 | Inpatient (IN) | payer SELFPAY ==
[~2017-06-04] VITALS: Ht 180.3 cm; Wt 100.5 kg
[~2017-06-04 19:13] MED LIST: PANT40TA3 PO
[2017-06-04 19:17] VITALS: BP 132/58; PULSE 115; RESP 15; TEMP 98.5; O2SAT 100
[2017-06-04] MEDS ORDERED: SODIUM CHLORIDE 0.9% FLUSH 10 ML FLUSH IVF PRN ×2 (20:00→20:15)
[2017-06-04] MEDS ORDERED: PANTOPRAZOLE INJ 80 MG in SODIUM CHLORIDE 0.9% INJ 35 ML IV ONE (20:07)
[2017-06-04] MEDS ORDERED: SODIUM CHLOR 0.9% 1000 ML INJ 1,000 ML IV SCH ×2 (20:07)
--- NOTE | 2017-06-04 20:19 | PD ---
HPI Chief Complaint: General Weakness Time Seen by Provider: 20:07 Travel History International Travel<30 days: No Contact w/Intl Traveler<30days: No Traveled to known affect area: No History of Present Illness HPI 49-year-old male with history of cirrhosis, esophageal varices, GI bleeding admitted last week, presents to the ER today for several days of worsening dyspnea on exertion and dizziness, feels that he is going to pass out. He states that he is starting to have her stools again. He denies any vomiting, abdominal pain, or other issues. Modifying Factors: None Associated Signs & Symptoms: Dark stools, dizziness, weakness, dyspnea on exertion Risk Factors: GI bleed seen last week PFSH Past Medical History Cardiovascular Problems: Yes Cirrhosis: Yes Diminished Hearing: No Endocrine: No Gastrointestinal Disorders: Yes (CIRRHOSIS, ESOPAGEAL VARICES) Genitourinary: No Hypertension: Yes (IN THE PAST) Immune Disorder: No Musculoskeletal: No Neurologic: No Reproductive: No Respiratory: No Past Surgical History Genitourinary Surgery: Yes (ESPHOGEAL BANDING) Thoracic Surgery: Yes (TONSILLECTOMY) Tonsillectomy: Yes Other Surgery: Yes Social History Alcohol Use: Yes (4XS WEEKLY) Tobacco Use: Yes (1 PPD) Substance Use: No Allergies-Medications (Allergen,Severity, Reaction): Coded Allergies: No Known Allergies (Unverified , 06/04/17) Reported Meds & Prescriptions Reported Meds & Active Scripts Active No Active Prescriptions or Reported Medications Review of Systems Except as stated in HPI: all other systems reviewed are Neg Physical Exam Narrative GENERAL: Well-developed middle age white male patient currently in mild distress. Awake, alert, oriented 3. SKIN: Focused skin assessment warm/dry. HEAD: Atraumatic. Normocephalic. EYES: Pupils equal and round. No scleral icterus. No injection or drainage. Pale conjunctiva. ENT: No nasal bleeding or discharge. Mucous membranes pink and moist. NECK: Trachea midline. No JVD. CARDIOVASCULAR: Regular rate and rhythm. No murmur appreciated. RESPIRATORY: No accessory muscle use. Clear to auscultation. Breath sounds equal bilaterally. GASTROINTESTINAL: Abdomen soft, non-tender, nondistended. Hepatic and splenic margins not palpable. RECTAL EXAM: No masses or tenderness, stool is dark, Hemoccult-positive. MUSCULOSKELETAL: No obvious deformities. No clubbing. No cyanosis. No edema. NEUROLOGICAL: Awake and alert. No obvious cranial nerve deficits. Motor grossly within normal limits. Normal speech. PSYCHIATRIC: Appropriate mood and affect; insight and judgment normal. Data Data Last Documented VS Vital Signs Date Time Temp Pulse Resp B/P (MAP) Pulse Ox O2 Delivery O2 Flow Rate FiO2 06/04/17:17 98.5 115 15 132/58 (82) 100 Room Air Orders Orders Electrocardiogram (06/04/17 19:56) Complete Blood Count With Diff (06/04/17 19:56) Comprehensive Metabolic Panel (06/04/17:56) Magnesium (Mg) (06/04/17:56) Ckmb (Isoenzyme) Profile (06/04/17:56) Troponin I (06/04/17:56) Act Partial Throm Time (Ptt) (06/04/17:56) Prothrombin Time / Inr (Pt) (06/04/17:56) Urinalysis - C+S If Indicated (06/04/17:56) Ecg Monitoring (06/04/17:56) Iv Access Insert/Monitor (06/04/17:56) Oximetry (06/04/17:56) Sodium Chloride 0.9% Flush (Ns Flush) (06/04/17 20:00) Type And Screen (06/04/17 20:01) Sodium Chlor 0.9% 1000 Ml Inj (Ns 1000 M (06/04/17 20:07) Sodium Chlor 0.9% 1000 Ml Inj (Ns 1000 M (06/04/17 20:07) Sodium Chloride 0.9% Flush (Ns Flush) (06/04/17 20:15) Sodium Chlorid 0.9%... W/Octreotide Inj (06/04/17 20:07) Sodium Chloride 0.9... W/Pantoprazole In (06/04/17 20:07) Sodium Chloride 0.9... W/Pantoprazole In (06/04/17 20:07) Red Blood Cells (Rbc) (06/04/17 20:39) Blood Product Administration (06/04/17 20:39) Sodium Chlor 0.9% 250 Ml Inj (Ns 250 Ml (06/04/17 20:45) Admit Order (Ed Use Only) (06/04/17 20:48) Consult Gastroenterology (06/04/17 ) Labs Laboratory Tests Test 06/04/17 19:55 White Blood Count 23.1 TH/MM3 Red Blood Count 1.84 MIL/MM3 Hemoglobin 5.2 GM/DL Hematocrit 17.2 % Mean Corpuscular Volume 93.7 FL Mean Corpuscular Hemoglobin 28.5 PG Mean Corpuscular Hemoglobin Concent 30.5 % Red Cell Distribution Width 17.5 % Platelet Count 184 TH/MM3 Mean Platelet Volume 11.1 FL Neutrophils (%) (Auto) 83.1 % Lymphocytes (%) (Auto) 6.9 % Monocytes (%) (Auto) 9.1 % Eosinophils (%) (Auto) 0.5 % Basophils (%) (Auto) 0.4 % Neutrophils # (Auto) 19.2 TH/MM3 Lymphocytes # (Auto) 1.6 TH/MM3 Monocytes # (Auto) 2.1 TH/MM3 Eosinophils # (Auto) 0.1 TH/MM3 Basophils # (Auto) 0.1 TH/MM3 CBC Comment DIFF FINAL Differential Comment Prothrombin Time 13.9 SEC Prothromb Time International Ratio 1.2 RATIO Activated Partial Thromboplast Time 20.7 SEC Blood Urea Nitrogen 45 MG/DL Creatinine 1.38 MG/DL Random Glucose 157 MG/DL Total Protein 5.9 GM/DL Albumin 2.6 GM/DL Calcium Level 8.0 MG/DL Magnesium Level 1.6 MG/DL Alkaline Phosphatase 90 U/L Aspartate Amino Transf (AST/SGOT) 55 U/L Alanine Aminotransferase (ALT/SGPT) 38 U/L Total Bilirubin 1.3 MG/DL Sodium Level 136 MEQ/L Potassium Level 5.2 MEQ/L Chloride Level 104 MEQ/L Carbon Dioxide Level 16.8 MEQ/L Anion Gap 15 MEQ/L Estimat Glomerular Filtration Rate 55 ML/MIN Total Creatine Kinase 84 U/L Troponin I 0.03 NG/ML MDM Medical Decision Making Medical Screen Exam Complete: Yes Emergency Medical Condition: Yes Medical Record Reviewed: Yes Interpretation(s) Laboratory Tests Test 06/04/17 19:55 White Blood Count 23.1 TH/MM3 (4.0-11.0) Red Blood Count 1.84 MIL/MM3 (4.50-5.90) Hemoglobin 5.2 GM/DL (13.0-17.0) Hematocrit 17.2 % (39.0-51.0) Mean Corpuscular Hemoglobin Concent 30.5 % (32.0-36.0) Red Cell Distribution Width 17.5 % (11.6-17.2) Mean Platelet Volume 11.1 FL (7.0-11.0) Neutrophils (%) (Auto) 83.1 % (16.0-70.0) Lymphocytes (%) (Auto) 6.9 % (9.0-44.0) Monocytes (%) (Auto) 9.1 % (0.0-8.0) Neutrophils # (Auto) 19.2 TH/MM3 (1.8-7.7) Monocytes # (Auto) 2.1 TH/MM3 (0-0.9) Prothrombin Time 13.9 SEC (9.8-11.6) Activated Partial Thromboplast Time 20.7 SEC (24.3-30.1) Blood Urea Nitrogen 45 MG/DL (7-18) Creatinine 1.38 MG/DL (0.60-1.30) Random Glucose 157 MG/DL (74-106) Total Protein 5.9 GM/DL (6.4-8.2) Albumin 2.6 GM/DL (3.4-5.0) Calcium Level 8.0 MG/DL (8.5-10.1) Aspartate Amino Transf (AST/SGOT) 55 U/L (15-37) Total Bilirubin 1.3 MG/DL (0.2-1.0) Potassium Level 5.2 MEQ/L (3.5-5.1) Carbon Dioxide Level 16.8 MEQ/L (21.0-32.0) Estimat Glomerular Filtration Rate 55 ML/MIN (>89) Differential Diagnosis GI bleed, evaluate for anemia versus metabolic issues versus coagulopathy Narrative Course He is Hemoccult-positive and considering history, Protonix and octreotide was initiated in the ER as well as IV fluids. Lab work sent out. Lab work shows significant anemia with hemoglobin of 5.2. IV fluids and 2 units of blood was ordered for the patient. He will likely need more. Protonix and octreotide was ordered in the ER. Case was discussed with Dr. Zayas of GI. Patient was then discussed with Dr. Randhawa of intensive care unit for admission for further treatment. Aggregate critical care time was 25 minutes. Time to perform other separately billable procedures was not included in the critical care time. My time did not include minutes spent treating any other patients simultaneously or on activities that did not directly contribute to the patient's treatment. The services I provided to this patient were to treat and/or prevent clinically significant deterioration that could result in: Worsening GI bleed, cardiopulmonary arrest, I provided critical care services requiring my management, as noted below: Chart data review, documentation time, medication orders and management, vital sign assessments/reviewing monitor data, ordering and reviewing lab tests, ordering and interpreting/reviewing x-rays and diagnostic studies, care of the patient and discussion of the patient with the admitting physicians. HemaPrompt Point of Care Internal Pos. & Neg. Controls: Passed Fecal Specimen Occult Blood: Positive Diagnosis Primary Impression: GI bleed Additional Impression: Symptomatic anemia Admitting Information Admitting Physician Requests: Admit Scripts No Active Prescriptions or Reported Meds Hailey May MD Jun 04, 2017 20:19
[2017-06-04 20:26] LABS: AUTOMATED NEUTROPHIL # 19.2 TH/MM3 (1.8-7.7); BASOPHIL # 0.1 TH/MM3 (0-0.2); BASOPHIL % 0.4 % (0.0-2.0); EOSINOPHIL # 0.1 TH/MM3 (0-0.4); EOSINOPHIL % 0.5 % (0.0-4.0); LYMPH % 6.9 % (9.0-44.0); LYMPHOCYTE # 1.6 TH/MM3 (1.0-4.8); MEAN CELL VOLUME 93.7 FL (80.0-100.0); MEAN CORPUSCULAR HEMOGLOBIN 28.5 PG (27.0-34.0); MEAN CORPUSCULAR HGB CONC 30.5 % (32.0-36.0); MONO % 9.1 % (0.0-8.0); NEUT % 83.1 % (16.0-70.0); PLATELET COUNT 184 TH/MM3 (150-450); RED BLOOD COUNT 1.84 MIL/MM3 (4.50-5.90); RED CELL DISTRIBUTION WIDTH 17.5 % (11.6-17.2); WHITE BLOOD COUNT 23.1 TH/MM3 (4.0-11.0)
[2017-06-04 20:37] LABS: HEMO FLAGS DIFF FINAL
[2017-06-04 20:38] LABS: ANION GAP 15 MEQ/L (5-15); AST (GOT) 55 U/L (15-37); BICARBONATE 16.8 MEQ/L (21.0-32.0); BLOOD UREA NITROGEN 45 MG/DL (7-18); CHLORIDE 104 MEQ/L (98-107); GLOMERULAR FILTRATION RATE 55 ML/MIN (>89); MAGNESIUM 1.6 MG/DL (1.5-2.5); POTASSIUM 5.2 MEQ/L (3.5-5.1); SODIUM (NA) 136 MEQ/L (136-145)
[2017-06-04 20:39] LABS: ALT (GPT) 38 U/L (12-78)
[2017-06-04 20:40] LABS: HEMATOCRIT 17.2 % (39.0-51.0)
[2017-06-04 20:41] LABS: APTT (PATIENT) 20.7 SEC (24.3-30.1); INTERNATIONAL NORMALIZED RATIO 1.2 RATIO; PROTHROMBIN TIME - PATIENT 13.9 SEC (9.8-11.6)
[2017-06-04 20:43] LABS: ALKALINE PHOSPHATASE 90 U/L (45-117); TOTAL BILIRUBIN ADULT 1.3 MG/DL (0.2-1.0)
[2017-06-04] MEDS ORDERED: SODIUM CHLOR 0.9% 250 ML INJ 250 ML IV ONE (20:45)
[2017-06-04 20:46] LABS: CREATINE KINASE 84 U/L (39-308)
[2017-06-04] MEDS: PANTOPRAZOLE INJ 80 MG in SODIUM CHLORIDE 0.9% INJ 100 ML IV SCH (21:06)
[2017-06-04] MEDS: OCTREOTIDE INJ 500 MCG in SODIUM CHLORID 0.9% 500 ML INJ 500 ML IV SCH (21:07)
[2017-06-04] MEDS ORDERED: MISCELLANEOUS NURSING INFORMATION XX SCH (21:15)
[2017-06-04] MEDS ORDERED: CHLORHEXIDINE GLUCONATE 2 % 1 PACK (2 CLOTHS) TOP PRN (21:15)
[2017-06-04] MEDS ORDERED: SENNOSIDES 8.6 MG TAB PO PRN (21:15)
[2017-06-04] MEDS ORDERED: LACTULOSE SYRUP 20 GM/30 ML CUP PO PRN (21:15)
[2017-06-04] MEDS ORDERED: BISACODYL 10 MG SUPP RECTAL PRN (21:15)
[2017-06-04] MEDS ORDERED: MAGNESIUM HYDROXIDE SUSP 30 ML CUP PO PRN (21:15)
[2017-06-04] MEDS ORDERED: RESP: IPRATROPIUM 0.5 MG/2.5 ML NEB INH PRN (21:15)
[2017-06-04] MEDS ORDERED: GLUCAGON 1 MG/ML VIAL OTHER PRN (21:30)
[2017-06-04] MEDS: INSULIN NovoLIN REGULAR SUPPLEMENTAL SCALE SQ SCH (21:30)
[2017-06-04] MEDS ORDERED: DEXTROSE 50% IN WATER 50 ML VIAL(D50) IV PUSH PRN (21:30)
[2017-06-04 21:45] VITALS: O2SAT 99
[2017-06-04] MEDS: RESP: ALBUTEROL 2.5 MG/IPRATROPIUM 0.5 MG NEB (SCH) INH (21:46)
--- NOTE | 2017-06-04 21:56 | RADRPT ---
EXAM DATE/TIME: 06/04/2017 21:19 [facility] COMPARISON: CHEST SINGLE AP, May 27, 2017, 15:59. INDICATIONS : Shortness of breath MEDICAL HISTORY : Cirrhosis SURGICAL HISTORY : None. ENCOUNTER: Initial ACUITY: 1 day PAIN SCORE: Non-responsive. LOCATION: Bilateral chest FINDINGS: A single view of the chest demonstrates the lungs to be symmetrically aerated without evidence of mas s, infiltrate or effusion. The cardiomediastinal contours are unremarkable. Osseous structures are intact. CONCLUSION: No acute disease. Triston Varela MD on June 04, 2017 at 21:53 Board Certified Radiologist. This report was verified electronically.
[2017-06-04 22:10] VITALS: BP 104/51; PULSE 102; RESP 18; TEMP 98.8; O2SAT 100
--- NOTE | 2017-06-04 22:20 | MH ---
cc: BRITTANEY MANDUJANO M.D. DATE OF ADMISSION 06/04/2017 DATE OF June 29, 1967 HISTORY OF PRESENT ILLNESS The patient is a 49-year-old male with past medical history of cirrhosis of liver secondary to EtOH abuse with previous esophageal varices and EtOH use. He presented to [facility] ED with a history of nausea, melena and generalized weakness. The patient also reports shortness of breath with exertion and feeling dizzy. He was recently discharged from [place] after he was admitted back on May 27 with upper GI bleed and at that time he underwent upper endoscopy on May [address] Brenner which showed severe gastropathy with grade I to II esophageal varices without any evidence of active bleeding. On arrival to the ER he was tachycardiac with heart rate of 115, however, blood pressure is 132/58. The patient denies any use of aspirin. He does not take any medications at home. The patient states that he quit drinking 1 week ago and normally he drinks [id number] cocktails a week and twice on the weekend. In the ER he was found to have a hemoglobin of 5.[address] Zayas from GI service was notified and the patient scheduled to receive 2 units of PRBCs. In the ER he was given 1 liter bolus of normal saline and placed on octreotide and Protonix drips. He denies any orthopnea, PND or edema of lower extremities. In addition, he denies any hematemesis, hemoptysis. On a previous admission an ultrasound of the abdomen from May 28 showed mild thickening of gallbladder wall. No stones or sludge identified. No evidence of any masses or biliary obstruction and no evidence of hydronephrosis. The patient states the last time he had paracentesis approximately in 2012. PAST MEDICAL HISTORY Significant for cirrhosis of liver, esophageal varices. PAST SURGICAL HISTORY Previous right elbow surgery for ulnar nerve release. Previous vasectomy. Previous surgery on left lower extremity. Previous tonsillectomy. SOCIAL HISTORY The patient states that he quit drinking 1 week ago, however, he used to drink about two, three times a week and twice on a weekend. Also, he smokes one pack cigarettes per day. He denies any IV drug use. FAMILY HISTORY Diabetes mellitus runs in the family. ALLERGIES NO KNOWN DRUG ALLERGIES. MEDICATIONS At home, no active prescriptions. REVIEW OF SYSTEMS As per HPI. The rest of the review of systems unremarkable. PHYSICAL EXAMINATION GENERAL: A 49-year-old male lying in bed in no acute distress. Vital signs: Afebrile with temperature 98.5, pulse of 105-115, blood pressure 132/58, saturation 97-100%. HEENT: Atraumatic, normocephalic. Pupils equal, round and reactive to light and accommodation. Extraocular muscles intact. Conjunctivae pink. Nonicteric sclerae. Oral mucosa within normal. Dry mucous membranes. NECK: Supple. No JVD, adenopathy or thyromegaly. Trachea in midline. CARDIOVASCULAR: Tachycardiac, normal S1-S2. No murmurs, rubs or gallops noted. PULMONARY EXAMINATION: Bilateral equal entry. No crackles or wheezing. ABDOMEN: Soft, nontender, no distension. Positive bowel sounds. EXTREMITIES: No cyanosis, clubbing or edema. NEURO: No focal sensory deficit. LABORATORY DATA Sodium 136, potassium 5.2, chloride 105. C02 16.8, BUN 45, creatinine 1.38, glucose of 157, total bilirubin 1.3, AST 55, ALT 38, total protein 5.9. Troponin 0.03 with total CK 84, WBC 5.2, hemoglobin 17.2, white blood cell count 23, platelet count 184. IMPRESSION 1. Upper GI bleed, rule out variceal bleed. 2. Severe anemia with hemoglobin of 5.2. 3. Cirrhosis of liver. 4. EtOH abuse. 5. Mild acute kidney injury. 6. Leukocytosis, likely reactive. RECOMMENDATIONS 1. Monitor neuro status closely and monitor for signs of DTs. Will place on thiamine, multivitamins and folic acid. 2. Oxygen p.r.n. to maintain sats above 92%. 3. Bronchodilators in the form of DuoNeb q. 6+ q. 2 p.r.n. for shortness of breath. 4. Will check baseline chest x-ray. 5. Monitor heart rate and blood pressure closely and maintain MAP greater than 65 mmHg. 6. Continue with IV fluids. He was given 1 liter of normal saline in the ED. Will continue with D5 NS at 84 ml an hour. 7. Monitor renal function Is and Os and avoid nephrotoxins. Continue with IV hydration as stated above. 8. Keep n.p.o. for now and continue with Protonix and octreotide drips. The patient is for transfusion 2 units of PRBCs. We will check H&H post transfusion. GI service has been notified. Patient status post upper endoscopy on May 28 which showed severe gastropathy with grade I to II esophageal varices without any evidence of active bleeding. He will likely need repeat endoscopy with possible banding. 9. Place on empiric antibiotics in the form of Rocephin given history of cirrhosis of liver with GI bleed. Monitor for signs of infections which include fever and WBC. Will check urinalysis with culture if indicated and will obtain a baseline chest x-ray. Panculture if spikes a fever. 10. Sliding scale insulin with Accu-Chek for glycemic control. 11. GI prophylaxis, the patient is on Protonix drip. DVT prophylaxis with SCDs. A chemical anticoagulation prophylaxis contraindicated in the setting of GI bleed. 12. Further recommendations will be based on hospital course. 13. The patient is critically ill with GI bleed, severe anemia, acute kidney injury and tachycardia. Critical care time 40 minutes excluding procedures. MD LOVELY Montgomery/SHAKIRA /9:41 PM /10:03 PM
[2017-06-04 22:25] VITALS: BP 101/59; PULSE 101; RESP 16; TEMP 98.4; O2SAT 100
[2017-06-04] MEDS: DEXT 5%-NACL 0.9% 1000 ML INJ 1,000 ML IV SCH (22:39)
[2017-06-04 23:02] VITALS: BP 114/52
[2017-06-04 23:25] VITALS: BP 127/54; PULSE 102; RESP 22; TEMP 100; O2SAT 99
[2017-06-04] MEDS: cefTRIAXone INJ 1,000 MG in SODIUM CHLORIDE 0.9% INJ 100 ML IV SCH (23:53)
[2017-06-05] VITALS (26 sets, daily range): BP systolic 106–168; BP diastolic 53–79; PULSE 66–100; RESP 12–40; TEMP 98.1–99.2; O2SAT 94–100
[2017-06-05 03:35] LABS: BLOOD, URINE NEG (NEG); COMMENT (UR) CULT NOT INDICATED; CULTURE IF INDICATED CULT NOT INDICATED; GLUCOSE,URINE NEG (NEG); HYALINE CAST, URINE 1 /lpf (RARE); KETONE, URINE NEG (NEG); NITRITE,URINE NEG (NEG); PH, URINE 5.5 (5.0-8.5); SQUAMOUS EPITHELIAL CELL URINE <1 /hpf (0-5); URINE COLOR YELLOW (YELLW/STRAW)
[2017-06-05] MEDS: CHLORHEXIDINE GLUCONATE 2 % 1 PACK (2 CLOTHS) TOP SCH (04:00)
[2017-06-05] MEDS: INSULIN NovoLIN REGULAR SUPPLEMENTAL SCALE SQ SCH ×7 (04:00→23:35)
[2017-06-05] MEDS: RESP: ALBUTEROL 2.5 MG/IPRATROPIUM 0.5 MG NEB (SCH) INH ×4 (04:05→21:12)
--- NOTE | 2017-06-05 05:05 | EKG ---
Date Performed: 06/04/2017 Time Performed: 20:08:10 PTAGE: 49 years EKG: SINUS TACHYCARDIA INCOMPLETE RIGHT BUNDLE BRANCH BLOCK ABNORMAL RHYTHM ECG PREVIOUS TRACING : 05/27/2017 15.32 DOCTOR: Marvin Diego Interpretating Date/Time 06/05/2017 05:03:09
[2017-06-05] MEDS: PANTOPRAZOLE INJ 80 MG in SODIUM CHLORIDE 0.9% INJ 100 ML IV SCH ×2 (06:02→19:00)
[2017-06-05] MEDS: OCTREOTIDE INJ 500 MCG in SODIUM CHLORID 0.9% 500 ML INJ 500 ML IV SCH ×2 (06:03→19:35)
--- NOTE | 2017-06-05 07:04 | HHI.CCPN ---
Subjective Remarks/Hospital Course The patient is a 49-year-old male with past medical history of cirrhosis of liver secondary to EtOH abuse with previous esophageal varices and EtOH use. He presented to [facility] ED with a history of nausea, melena and generalized weakness. The patient also reports shortness of breath with exertion and feeling dizzy. He was recently discharged from [place] after he was admitted back on May 27 with upper GI bleed and at that time he underwent upper endoscopy on May [address] Brenner which showed severe gastropathy with grade I to II esophageal varices without any evidence of active bleeding. On arrival to the ER he was tachycardiac with heart rate of 115, however, blood pressure is 132/58. The patient denies any use of aspirin. He does not take any medications at home. The patient states that he quit drinking 1 week ago and normally he drinks two to-three cocktails a week and twice on the weekend. In the ER he was found to have a hemoglobin of 5.[address] Zayas from GI service was notified and the patient scheduled to receive 2 units of PRBCs. In the ER he was given 1 liter bolus of normal saline and placed on octreotide and Protonix drips. He denies any orthopnea, PND or edema of lower extremities. In addition, he denies any hematemesis, hemoptysis. On a previous admission an ultrasound of the abdomen from May 28 showed mild thickening of gallbladder wall. No stones or sludge identified. No evidence of any masses or biliary obstruction and no evidence of hydronephrosis. The patient states the last time he had paracentesis approximately in 2012. Subjective 06/05: Status post 2 units PRBCs. Hemodynamically stable. Smells of melena. Abdominal pain resolved. Resting in bed in no acute distress currently. Objective Vital Signs Date Time Temp Pulse Resp B/P (MAP) Pulse Ox O2 Delivery O2 Flow Rate FiO2 06/05/17 06:00 93 06/05/17 04:00 98.6 30 140/63 (88) 100 06/04/17 21:45 Nasal Cannula 2.00 Intake and Output 06/05/17 06/05/17 06/06/17 08:00 16:00 00:00 Intake Total 2436 ml Output Total 1200 ml Balance 1236 ml Result Diagram: 10/02/13 195506/04/171954 Imaging Last Impressions Chest X-Ray 06/04/17 0000 Signed Impressions: Service Date/Time: Sunday, June 04, 2017 21:19 - CONCLUSION: No acute disease. Triston Varela MD Objective Remarks GENERAL: Year-old male, resting in bed in no acute distress SKIN: Warm and dry. HEAD: Atraumatic. Normocephalic. EYES: Pupils equal and round about 3 mm bilaterally and reactive. No scleral icterus. No injection or drainage. ENT: No nasal bleeding or discharge. Mucous membranes pink and moist. NECK: Trachea midline. No JVD. CARDIOVASCULAR: Regular rate and rhythm. S1, S2. No S4. Without murmur RESPIRATORY: Clear to auscultation. Breath sounds equal bilaterally. GASTROINTESTINAL: Abdomen thoroughly protuberant. Nontender. Hypoactive bowel sounds are appreciated.. MUSCULOSKELETAL: Extremities without significant peripheral edema. No obvious deformities. NEUROLOGICAL: Awake and alert. No obvious cranial nerve deficits. Motor grossly within normal limits. Five out of 5 muscle strength in the arms and legs. Normal speech. PSYCHIATRIC: Appropriate mood and affect; insight and judgment normal. A/P Assessment and Plan Neuro/Psych: History of EtOH Currently on thiamine 100 mg daily, folate 1 mg daily multivitamin 1 tablet daily CV: Patient is currently hemodynamically stable and not requiring vasopressors and/ or antihypertensives Current D5 normal saline at 84 cc an hour Resp: Nasal cannula to maintain saturations greater than equal to 92% Incentive spirometry while awake Patient is currently on albuterol/ipratropium aerosols every 6 hours with albuterol aerosols every 2 hours. Dyspnea GI: Upper GI bleed History of esophageal varices grade 1-2 Abdominal ascites Hypoalbuminemia Currently on pantoprazole drip at 8 mg an hour and Sandostatin drip at 50 grams an hour Continue ceftriaxone for upper GI bleed 3 days Serial hemoglobins every 6 hours GI consultation for repeat EGD. Last EEG 05/2829 Grade 1-2 esophageal varices no active bleeding deflated with insufflation of air. : No indication for Trivedi catheter Endo: Elevated MBS Sliding-scale insulin to maintain euglycemia/low regimen every 4 hours Renal: Acute kidney injury Right renal stone A.m. laboratories pending. Heme: Anemia/acute blood loss Status post 2 units PRBCs. A.m. labs pending. Check hemoglobins every 6 hours. ID: On ceftriaxone 3 days for upper GI bleed FEN: Hyperkalemia A.m. laboratories pending. Correct if indicated MSK: Out of bed as tolerated when clinically indicated Access - Utilize peripheral IV. Central line if indicated Prophylaxis - GI - pantoprazole/Sandostatin - DVT - SCD/pharmacological prophylaxis contra indicated with upper GI bleed Level II follow-up Mele Charles MD Jun 05, 2017 07:04
[2017-06-05] MEDS ORDERED: RESP: ALBUTEROL 2.5 MG/3 ML NEB (PRN) NEB (07:15)
[2017-06-05] MEDS: THIAMINE INJ 100 MG in SODIUM CHLORIDE 0.9% INJ 100 ML IV SCH (08:45)
[2017-06-05] MEDS: FOLIC ACID 1 MG TAB PO SCH (08:48)
[2017-06-05] MEDS: MULTIVITAMIN TAB PO SCH (08:49)
[2017-06-05] MEDS: DOCUSATE SODIUM 50 MG/SENNA 8.6 MG TAB PO SCH ×2 (08:49→19:35)
[2017-06-05] MEDS ORDERED: THIAMINE HCL 100 MG TAB PO SCH (09:00)
[2017-06-05 09:15] LABS: AUTOMATED NEUTROPHIL # 9.8 TH/MM3 (1.8-7.7); BASOPHIL % 0.4 % (0.0-2.0); EOSINOPHIL # 0.1 TH/MM3 (0-0.4); EOSINOPHIL % 1.1 % (0.0-4.0); LYMPH % 9.5 % (9.0-44.0); LYMPHOCYTE # 1.2 TH/MM3 (1.0-4.8); MEAN CELL VOLUME 86.9 FL (80.0-100.0); MEAN CORPUSCULAR HEMOGLOBIN 28.8 PG (27.0-34.0); MEAN CORPUSCULAR HGB CONC 33.2 % (32.0-36.0); PLATELET COUNT 89 TH/MM3 (150-450); RED BLOOD COUNT 2.13 MIL/MM3 (4.50-5.90); RED CELL DISTRIBUTION WIDTH 19.9 % (11.6-17.2); WHITE BLOOD COUNT 12.6 TH/MM3 (4.0-11.0)
[2017-06-05 09:18] LABS: HEMO FLAGS AUTO DIFF
[2017-06-05 09:20] LABS: HEMATOCRIT 18.5 % (39.0-51.0)
[2017-06-05 09:47] LABS: BICARBONATE 21.9 MEQ/L (21.0-32.0); CALCIUM-PROTEIN CORRECTED 8.2 MG/DL (8.5-10.1); MAGNESIUM 1.8 MG/DL (1.5-2.5); POTASSIUM 4.2 MEQ/L (3.5-5.1)
[2017-06-05 10:02] LABS: OVALOCYTES 1+ (NORMAL); PLATELET ESTIMATE SMEAR LOW (NORMAL); PLATELET MORPHOLOGY ENLARGED (NORMAL); POLYCHROMASIA 2.4 % (0.0-1.9); SCAN/DIFF AUTO DIFF CONFIRMED; TOXIC GRANULATION 1+ (NORMAL)
--- NOTE | 2017-06-05 10:16 | PD.CONS ---
HPI History of Present Illness This is a 49 year old male with cirrhosis, hx heavy ETOH use who presented with melena, SOB, dizziness and hgb 5.2. He says he was feeling like he did prior to earlier admission. He was discharged a week ago for GIB. Had EGD 05/28 found severe gastropathy, varices, no active bleeding. He was having dark tarry stools which stopped for a day when he was discharged and then began again , has had since. He admits also some nausea and epigastric pain, particularly when drinking water. NO bright red blood in stool, no vomiting. (Ju Pena) PFSH Past Medical History ETOH abuse cirrhosis gastropathy varices Past Surgical History ulnar nerve release left knee surgery pilonidal cyst (Ju Pena) Coded Allergies: No Known Allergies (Unverified , 06/04/17) Family History DM Social History prior heavy drinker, says he hasn't quit but is cutting back. drinks "few" times a week and on weekend, 3 cocktails 1ppd no illicit drugs (Ju Pena) Review of Systems Constitutional: DENIES: Fever Eyes: DENIES: Blurred vision Ears, nose, mouth, throat: DENIES: Hearing loss Respiratory: DENIES: Hemoptysis Gastrointestinal: COMPLAINS OF: Abdominal pain, Black stools, Nausea, DENIES: Bloody stools, Constipation, Diarrhea, Vomiting, Hematemesis Genitourinary: DENIES: Hematuria Musculoskeletal: DENIES: Joint Swelling Integumentary: DENIES: Jaundice Hematologic/lymphatic: DENIES: Bruising Immunologic/allergic: DENIES: Eczema Neurologic: DENIES: Abnormal gait Psychiatric: DENIES: Mood changes (Ju Pena) GI Exam Vitals I&O Vital Signs Date Time Temp Pulse Resp B/P (MAP) Pulse Ox O2 Delivery O2 Flow Rate FiO2 06/05/17 08:48 100 21 06/05/17 06:00 93 06/05/17 04:00 94 06/05/17 04:00 98.6 94 30 140/63 (88) 100 06/05/17 02:00 98 06/05/17 01:29 97 22 115/53 99 06/05/17 00:00 100 22 106/63 (77) 99 06/05/17 00:00 100 06/04/17 23:25 100.0 102 22 127/54 (78) 99 06/04/17 23:02 101 16 114/52 (72) 100 06/04/17 22:25 98.4 101 16 101/59 100 06/04/17 22:10 98.8 102 18 104/51 100 06/04/17 21:45 99 Nasal Cannula 2.00 06/04/17 19:17 98.5 115 15 132/58 (82) 100 Room Air I/O 06/04/17 06/04/17 06/04/17 06/05/17 06/05/17 06/05/17 06:59 14:59 22:59 06:59 14:59 22:59 Intake Total 1239 ml 2436 ml Output Total 1200 ml Balance 1239 ml 1236 ml Intake IV Total 1239 ml 1591 ml Packed Cells 800 ml Blood Product IV Normal Saline Flush 45 ml Output Urine Total 1200 ml # Bowel Movements 2 Imaging Last Impressions Chest X-Ray 06/04/17 0000 Signed Impressions: Service Date/Time: Sunday, June 04, 2017 21:19 - CONCLUSION: No acute disease. Triston Varela MD Laboratory Test 06/04/17 19:55 06/04/17 23:25 06/05/17 00:00 06/05/17 08:01 White Blood Count 23.1 TH/MM3 12.6 TH/MM3 Red Blood Count 1.84 MIL/MM3 2.13 MIL/MM3 Hemoglobin 5.2 GM/DL 6.1 GM/DL Hematocrit 17.2 % 18.5 % Mean Corpuscular Volume 93.7 FL 86.9 FL Mean Corpuscular Hemoglobin 28.5 PG 28.8 PG Mean Corpuscular Hemoglobin Concent 30.5 % 33.2 % Red Cell Distribution Width 17.5 % 19.9 % Platelet Count 184 TH/MM3 89 TH/MM3 Mean Platelet Volume 11.1 FL 10.9 FL Neutrophils (%) (Auto) 83.1 % 78.0 % Lymphocytes (%) (Auto) 6.9 % 9.5 % Monocytes (%) (Auto) 9.1 % 11.0 % Eosinophils (%) (Auto) 0.5 % 1.1 % Basophils (%) (Auto) 0.4 % 0.4 % Neutrophils # (Auto) 19.2 TH/MM3 9.8 TH/MM3 Lymphocytes # (Auto) 1.6 TH/MM3 1.2 TH/MM3 Monocytes # (Auto) 2.1 TH/MM3 1.4 TH/MM3 Eosinophils # (Auto) 0.1 TH/MM3 0.1 TH/MM3 Basophils # (Auto) 0.1 TH/MM3 0.0 TH/MM3 CBC Comment DIFF FINAL AUTO DIFF Differential Comment AUTO DIFF CONFIRMED Prothrombin Time 13.9 SEC Prothromb Time International Ratio 1.2 RATIO Activated Partial Thromboplast Time 20.7 SEC Blood Urea Nitrogen 45 MG/DL 40 MG/DL Creatinine 1.38 MG/DL 1.02 MG/DL Random Glucose 157 MG/DL 112 MG/DL Total Protein 5.9 GM/DL 5.2 GM/DL Albumin 2.6 GM/DL 2.4 GM/DL Calcium Level 8.0 MG/DL 7.2 MG/DL Magnesium Level 1.6 MG/DL 1.8 MG/DL Alkaline Phosphatase 90 U/L 70 U/L Aspartate Amino Transf (AST/SGOT) 55 U/L 158 U/L Alanine Aminotransferase (ALT/SGPT) 38 U/L 83 U/L Total Bilirubin 1.3 MG/DL 1.0 MG/DL Sodium Level 136 MEQ/L 140 MEQ/L Potassium Level 5.2 MEQ/L 4.2 MEQ/L Chloride Level 104 MEQ/L 111 MEQ/L Carbon Dioxide Level 16.8 MEQ/L 21.9 MEQ/L Anion Gap 15 MEQ/L 7 MEQ/L Estimat Glomerular Filtration Rate 55 ML/MIN 78 ML/MIN Total Creatine Kinase 84 U/L Troponin I 0.03 NG/ML Nasal Screen MRSA (PCR) MRSA NOT DETECTED Urine Color YELLOW Urine Turbidity CLEAR Urine pH 5.5 Urine Specific Temperance 1.018 Urine Protein NEG mg/dL Urine Glucose (UA) NEG mg/dL Urine Ketones NEG mg/dL Urine Occult Blood NEG Urine Nitrite NEG Urine Bilirubin NEG Urine Urobilinogen LESS THAN 2.0 MG/DL Urine Leukocyte Esterase NEG Urine WBC LESS THAN 1 /hpf Urine Squamous Epithelial Cells <1 /hpf Urine Hyaline Casts 1 /lpf Microscopic Urinalysis Comment CULT NOT INDICATED Toxic Granulation 1+ Platelet Estimate LOW Platelet Morphology Comment ENLARGED Polychromasia 2.4 % Ovalocytes 1+ Phosphorus Level 2.9 MG/DL Protein Corrected Calcium 8.2 MG/DL Physical Examination HEENT: PERRL; normocephalic; atraumatic; no jaundice. Throat is clear. NECK: Neck is supple, no JVD, no lymphadenopathy. CHEST: Chest is clear to auscultation and percussion. CARDIAC: Regular rate and rhythm with no murmur gallop or rubs. ABDOMEN: Soft, nondistended, nontender; no hepatosplenomegaly; bowel sounds are present in all four quadrants. EXTREMITIES: No clubbing, cyanosis, or edema. SKIN: Normal; no rash; no jaundice. 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 (Ju Pena) Assessment and Plan Plan ASSESSMENT - anemia, melena - hgb 5.2 on admission. EGD 05/28 with severe gastropathy, varices, no active bleed. dark tarry stool for last week - cirrhosis - likely 2/2 ETOH, hx heavy drinking. prior US showing hepatomegaly and heterogenous echotexture. mild elev LFTs slightly improved from last admission PLAN - EGD with poss banding - NPO - Obtain consent - PPI - monitor HH - transfuse as needed - ETOH cessation - further recs to follow This pt seen by myself and Dr Zayas and this note is written on her behalf (Ju Pena) Physician Comments seen, examined agree with above (Bere Zayas MD) Ju Pena Jun 05, 2017 10:16 Bere Zayas MD Jun 05, 2017 13:49
[2017-06-05] MEDS ORDERED: MIDAZOLAM HCL 2 MG/2 ML VIAL IV ONE (12:00)
[2017-06-05] MEDS ORDERED: PROPOFOL 200 MG/20 ML AMP IV ONE (12:00)
[2017-06-05] MEDS ORDERED: SUCCINYLCHOLINE CHLORIDE 100 MG/5 ML SYRINGE IV PUSH ONE (12:00)
[2017-06-05] MEDS ORDERED: LIDOCAINE HCL 1% PF 5 ML AMPULE OTHER ONE (12:00)
[2017-06-05] MEDS: DEXT 5%-NACL 0.9% 1000 ML INJ 1,000 ML IV SCH ×2 (12:10→23:35)
--- NOTE | 2017-06-05 13:54 | GIPROC ---
[facility] [address] [facility]. [facility], [id number] EGD PROCEDURE REPORT EXAM DATE: 06/05/2017 PATIENT NAME: Smith Callahan MR #: [id number] BIRTHDATE: 06/29/1967 ATTENDING: Bere Zayas MD ORDER #: [id number] RECONCILIATION MANAGER: Brian Roland and Dyan Aquino STATUS: inpatient INDICATIONS: The patient is a 49 yr old male here for an EGD due to anemia, gi bleeding PROCEDURE PERFORMED: EGD w/ biopsy MEDICATIONS: None and Per Anesthesia. TOPICAL ANESTHETIC: none CONSENT: The patient understands the risks and benefits of the procedure and understands that these risks include, but are not limited to: sedation, allergic reaction, infection, perforation and/or bleeding. Alternative means of evaluation and treatment include, among others: physical exam, x-rays, and/or surgical intervention. The patient elects to proceed with this endoscopic procedure. medical equipment was checked for proper function. Hand hygiene and appropriate measures for infection prevention was taken. After the risks, benefits and alternatives of the procedure were thoroughly explained, Informed consent was verified, confirmed and timeout was successfully executed by the treatment team. The patient was anesthetized with topical anesthesia and the Pentax EG-[id number] endoscope was introduced through the mouth and advanced to the second portion of the duodenum. Retroflexed views revealed gastric varices The gastroscope was then slowly withdrawn and removed. Esophageal varices grade 2 -s/p banding-4 bands applied gastric varices duodenla bulb polyps-biopsy. ADVERSE EVENTS: There were no complications. IMPRESSIONS: 1. Esophageal varices grade 2 -s/p banding-4 bands applied gastric varices duodenla bulb polyps-biopsy 2. Retroflexed views revealed gastric varices RECOMMENDATIONS: 1. Await biopsy results. Biopsy results will not be ready for 7-10 days. If you don't hear from us in two weeks, call our office for biopsy results. 2. Anti-reflux regimen 3. Ct abdomen/pelvis clear liquids continue Octreotide , Protonix PATIENT CONDITION: stable DISPOSITION: Inpatient REPEAT EXAM: Return 8 weeks EGD Bere Zayas MD eSigned: Bere Zayas MD 06/05/2017 1:54 PM cc: PATIENT NAME: Smith Callahan MR#: [id number]
[2017-06-05] MEDS ORDERED: DO NOT ADM ANY ANTICOAGULANT DRUGS PRN (14:30)
[2017-06-05] MEDS ORDERED: DIATRIZOATE MEGLUM/DIATRIZOATE SOD 9 ML CUP PO ONE (15:00)
[2017-06-05] MEDS ORDERED: IOHEXOL 350 MG/ML 10 ML VIAL (for RAD DIAG) IVCONTRAST ONE (20:57)
--- NOTE | 2017-06-05 21:07 | RADRPT ---
EXAM DATE/TIME: 06/05/2017 20:39 [facility] COMPARISON: No previous studies available for comparison. INDICATIONS : Abdominal pain with nausea and dark stool. IV CONTRAST: 100 cc Omnipaque 350 (iohexol) IV ORAL CONTRAST: Prescribed oral contrast ingested. RADIATION DOSE: 11.09 CTDIvol (mGy) MEDICAL HISTORY : Hypertension. Cirrhosis. Esophageal varices. SURGICAL HISTORY : Esophageal banding. ENCOUNTER: Initial ACUITY: 2 days PAIN SCALE: 7/10 LOCATION: All quadrants. TECHNIQUE: Volumetric scanning of the abdomen and pelvis was performed. Using automated exposure control and ad justment of the mA and/or kV according to patient size, radiation dose was kept as low as reasonably achievable to obtain optimal diagnostic quality images. DICOM format image data is available electro nically for review and comparison. FINDINGS: There is linear atelectasis at the lung bases. The osseous structures are intact. The liver is cirrho tic in appearance with a nodular contour and diffusely inhomogeneous in appearance. There is moderate ascites. The gallbladder is distended. Spleen is enlarged up to 16 cm. Gastric varices are noted. Pe riesophageal varices are also identified. Pancreas, adrenal glands, left kidney unremarkable. At the midpole of the right kidney medially a 1.5 cm cystic structure is noted containing a calculus measuri ng 3.5 mm, possibly calyceal diverticulum. There is mild diffuse small bowel fold thickening likely r elated to the ascites. Urinary bladder unremarkable. No evidence of bowel obstruction. There is colon ic wall thickening seen diffusely as well. There are varices at the level of the omentum and gastrohe patic ligament. CONCLUSION: 1. Cirrhosis and portal hypertension 2. Basilar atelectasis. 3. Calyceal diverticulum with stone right kidney. 4. Bowel wall thickening is noted likely related to the ascites. Eliot Samson MD on June 05, 2017 at 21:03 Board Certified Radiologist. This report was verified electronically.
[2017-06-05] MEDS: cefTRIAXone INJ 1,000 MG in SODIUM CHLORIDE 0.9% INJ 100 ML IV SCH (23:39)
[2017-06-06] VITALS (29 sets, daily range): BP systolic 100–131; BP diastolic 53–96; PULSE 64–98; RESP 12–26; TEMP 98.1–99; O2SAT 94–100
[2017-06-06] MEDS: RESP: ALBUTEROL 2.5 MG/IPRATROPIUM 0.5 MG NEB (SCH) INH ×4 (03:39→20:21)
[2017-06-06] MEDS: CHLORHEXIDINE GLUCONATE 2 % 1 PACK (2 CLOTHS) TOP SCH (04:00)
[2017-06-06] MEDS: INSULIN NovoLIN REGULAR SUPPLEMENTAL SCALE SQ SCH ×4 (04:00→20:29)
[2017-06-06] MEDS: PANTOPRAZOLE INJ 80 MG in SODIUM CHLORIDE 0.9% INJ 100 ML IV SCH ×2 (04:17→15:37)
[2017-06-06] MEDS: OCTREOTIDE INJ 500 MCG in SODIUM CHLORID 0.9% 500 ML INJ 500 ML IV SCH (05:27)
[2017-06-06] MEDS: DOCUSATE SODIUM 50 MG/SENNA 8.6 MG TAB PO SCH ×3 (09:00→20:30)
[2017-06-06] MEDS: FOLIC ACID 1 MG TAB PO SCH (09:15)
[2017-06-06] MEDS: MULTIVITAMIN TAB PO SCH (09:15)
[2017-06-06] MEDS: THIAMINE INJ 100 MG in SODIUM CHLORIDE 0.9% INJ 100 ML IV SCH (09:16)
[2017-06-06 13:17] LABS: BICARBONATE 22.2 MEQ/L (21.0-32.0); CALCIUM-PROTEIN CORRECTED 7.8 MG/DL (8.5-10.1); POTASSIUM 3.9 MEQ/L (3.5-5.1); TOTAL BILIRUBIN ADULT 1.2 MG/DL (0.2-1.0)
--- NOTE | 2017-06-06 13:59 | HHI.CCPN ---
Subjective Remarks/Hospital Course The patient is a 49-year-old male with past medical history of cirrhosis of liver secondary to EtOH abuse with previous esophageal varices and EtOH use. He presented to [facility] ED with a history of nausea, melena and generalized weakness. The patient also reports shortness of breath with exertion and feeling dizzy. He was recently discharged from [place] after he was admitted back on May 27 with upper GI bleed and at that time he underwent upper endoscopy on May [address] Brenner which showed severe gastropathy with grade I to II esophageal varices without any evidence of active bleeding. On arrival to the ER he was tachycardiac with heart rate of 115, however, blood pressure is 132/58. The patient denies any use of aspirin. He does not take any medications at home. The patient states that he quit drinking 1 week ago and normally he drinks two to-three cocktails a week and twice on the weekend. In the ER he was found to have a hemoglobin of 5.[address] Zayas from GI service was notified and the patient scheduled to receive 2 units of PRBCs. In the ER he was given 1 liter bolus of normal saline and placed on octreotide and Protonix drips. He denies any orthopnea, PND or edema of lower extremities. In addition, he denies any hematemesis, hemoptysis. On a previous admission an ultrasound of the abdomen from May 28 showed mild thickening of gallbladder wall. No stones or sludge identified. No evidence of any masses or biliary obstruction and no evidence of hydronephrosis. The patient states the last time he had paracentesis approximately in 2012. 06/05: Status post 2 units PRBCs. Hemodynamically stable. Smells of melena. Abdominal pain resolved. Resting in bed in no acute distress currently. Subjective 06/06: Afebrile. Receiving 2 additional units of PRBC today. Noted 4 bands for esophageal varices yesterday. No current stigmata of bleeding. Diuresing per GI. Okay to transfer to floor. Objective Vital Signs Date Time Temp Pulse Resp B/P (MAP) Pulse Ox O2 Delivery O2 Flow Rate FiO2 06/06/17 12:00 87 06/06/17 12:00 98.9 24 131/76 (94) 100 06/06/17 08:01 21 06/05/17 21:13 Nasal Cannula 06/05/17 14:30 2 Intake and Output 06/06/17 06/06/17 06/07/17 08:00 16:00 00:00 Intake Total 525 ml 400 ml Output Total 1600 ml Balance -1075 ml 400 ml Result Diagram: 06/06/17 0102 06/06/17 1230 Imaging Last Impressions Abdomen/Pelvis CT 06/05/17 0000 Signed Impressions: Service Date/Time: Monday, June 05, 2017 20:39 - CONCLUSION: 1. Cirrhosis and portal hypertension 2. Basilar atelectasis. 3. Calyceal diverticulum with stone right kidney. 4. Bowel wall thickening is noted likely related to the ascites. Eliot Samson MD Chest X-Ray 06/04/17 0000 Signed Impressions: Service Date/Time: Sunday, June 04, 2017 21:19 - CONCLUSION: No acute disease. Triston Varela MD Objective Remarks GENERAL: Year-old male, resting in bed in no acute distress SKIN: Warm and dry. HEAD: Atraumatic. Normocephalic. EYES: Pupils equal and round about 3 mm bilaterally and reactive. No scleral icterus. No injection or drainage. ENT: No nasal bleeding or discharge. Mucous membranes pink and moist. NECK: Trachea midline. No JVD. CARDIOVASCULAR: Regular rate and rhythm. S1, S2. No S4. Without murmur RESPIRATORY: Clear to auscultation. Breath sounds equal bilaterally. GASTROINTESTINAL: Abdomen thoroughly protuberant. Positive ascites with splenomegaly noted Nontender. Hypoactive bowel sounds are appreciated.. MUSCULOSKELETAL: Extremities without significant peripheral edema. No obvious deformities. NEUROLOGICAL: Awake and alert. No obvious cranial nerve deficits. Motor grossly within normal limits. Five out of 5 muscle strength in the arms and legs. Normal speech. PSYCHIATRIC: Appropriate mood and affect; insight and judgment normal. A/P Assessment and Plan Neuro/Psych: History of EtOH Currently on thiamine 100 mg daily, folate 1 mg daily multivitamin 1 tablet daily Monitor for DTs Start on low-dose chlordiazepoxide 10 mg 3 times a day CV: Patient is currently hemodynamically stable and not requiring vasopressors and/ or antihypertensives Discontinue IV fluids Resp: Nasal cannula to maintain saturations greater than equal to 92% Incentive spirometry while awake Patient is currently on albuterol/ipratropium aerosols every 6 hours with albuterol aerosols every 2 hours. Dyspnea GI: Upper GI bleed History of esophageal varices grade 1-2 Teslas banding grade 2 esophageal varices 4 Gastric varices Abdominal ascites Hypoalbuminemia Currently on pantoprazole drip at 8 mg an hour and Sandostatin drip at 50 grams an hour Continue ceftriaxone for upper GI bleed 3 days GI consultation for repeat EGD. Revealed esophageal varices grade 24 bands. Gastric varices. Duodenal biopsies pending Last EEG 05/2829 Grade 1-2 esophageal varices no active bleeding deflated with insufflation of air. CT abdomen/pelvis revealed liver cirrhosis with nodular appearance. Moderate ascites. Splenomegaly at 16 cm. Esophageal and gastric varices. 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 Started on furosemide 20 mg daily and spironolactone 25 mg daily *[id number] mill grams 3 times a day and Isordil 5 mg 3 times a day for varices : No indication for Trivedi catheter Endo: Elevated MBS Sliding-scale insulin to maintain euglycemia/low regimen every before meals/at bedtime Renal: Acute kidney injury History of right nephrolithiasis Right renal calyceal diverticulum Right renal cyst Currently normal creatinine. No signs of hydronephrosis. Monitor urine output Heme: Anemia/acute blood loss Status post 4 units PRBCs. A.m. labs pending. Check hemoglobins every 6 hours. ID: On ceftriaxone 1 g daily 3 days for upper GI bleed FEN: Hyperkalemia A.m. laboratories pending. Correct if indicated MSK: Out of bed as tolerated when clinically indicated Access - Utilize peripheral IV. Central line if indicated Prophylaxis - GI - pantoprazole/Sandostatin - DVT - SCD/pharmacological prophylaxis contra indicated with upper GI bleed Level II follow-up Patient is stable from a critical care medicine standpoint. Assign care to hospitalist in a.m. 06/07. Mele Charles MD Jun 06, 2017 13:59
[2017-06-06 14:00] LABS: AUTOMATED NEUTROPHIL # 7.7 TH/MM3 (1.8-7.7); BASOPHIL % 0.4 % (0.0-2.0); EOSINOPHIL # 0.2 TH/MM3 (0-0.4); EOSINOPHIL % 2.3 % (0.0-4.0); HEMATOCRIT 28.3 % (39.0-51.0); LYMPH % 6.8 % (9.0-44.0); LYMPHOCYTE # 0.6 TH/MM3 (1.0-4.8); MEAN CELL VOLUME 86.1 FL (80.0-100.0); MEAN CORPUSCULAR HEMOGLOBIN 28.7 PG (27.0-34.0); MEAN CORPUSCULAR HGB CONC 33.3 % (32.0-36.0); MONO % 8.8 % (0.0-8.0); NEUT % 81.7 % (16.0-70.0); PLATELET COUNT 77 TH/MM3 (150-450); RED BLOOD COUNT 3.29 MIL/MM3 (4.50-5.90); RED CELL DISTRIBUTION WIDTH 16.9 % (11.6-17.2); WHITE BLOOD COUNT 9.4 TH/MM3 (4.0-11.0)
[2017-06-06 14:05] LABS: HEMO FLAGS AUTO DIFF; INTERNATIONAL NORMALIZED RATIO 1.2 RATIO
[2017-06-06 14:06] LABS: APTT (PATIENT) 24.4 SEC (24.3-30.1); PROTHROMBIN TIME - PATIENT 12.9 SEC (9.8-11.6)
[2017-06-06 14:39] LABS: OVALOCYTES 1+ (NORMAL); SCAN/DIFF AUTO DIFF CONFIRMED
[2017-06-06 14:40] LABS: PLATELET ESTIMATE SMEAR LOW (NORMAL); PLATELET MORPHOLOGY NORMAL (NORMAL)
[2017-06-06] MEDS ORDERED: CALCIUM GLUCONATE INJ 1 GM in SODIUM CHLORIDE 0.9% INJ 100 ML IV ONE (15:00)
[2017-06-06] MEDS ORDERED: SODIUM PHOSPHATE INJ 15 MMOL in SODIUM CHLORIDE 0.9% INJ 150 ML IV ONE (15:00)
[2017-06-06] MEDS: PROPRANOLOL HCL 10 MG TAB PO SCH ×2 (15:38→20:31)
--- NOTE | 2017-06-06 16:13 | HHI.GIFU ---
Subjective Remarks Patient is resting in bed, denies nausea, vomiting or abd pain, still passing black stools (Amawi,Khawla EXHIBIT ARTIST) Objective Vitals I&O Vital Signs Date Time Temp Pulse Resp B/P (MAP) Pulse Ox O2 Delivery O2 Flow Rate FiO2 06/06/17 12:00 87 06/06/17 12:00 98.9 87 24 131/76 (94) 100 06/06/17 11:00 64 06/06/17 11:00 98.1 64 22 107/57 (74) 98 06/06/17 10:00 68 06/06/17 10:00 98.3 67 17 116/57 (76) 99 06/06/17 09:00 98.4 66 20 125/68 (87) 98 06/06/17 09:00 66 06/06/17 08:01 94 21 06/06/17 08:00 65 06/06/17 08:00 98.5 65 20 115/62 (79) 98 06/06/17 07:53 98.5 65 19 115/62 96 06/06/17 07:38 98.3 70 16 109/56 99 06/06/17 07:00 98.3 69 18 104/55 (71) 96 06/06/17 07:00 69 06/06/17 06:00 86 06/06/17 06:00 86 18 129/58 (81) 97 06/06/17 05:00 98.8 67 24 122/67 (85) 97 06/06/17 04:46 79 19 119/70 95 06/06/17 04:00 73 06/06/17 04:00 73 18 121/62 (81) 95 06/06/17 03:00 73 22 119/57 (77) 94 06/06/17 02:00 72 24 110/54 (72) 95 06/06/17 02:00 72 06/06/17 01:00 75 24 122/65 (84) 95 06/06/17 00:00 73 06/06/17 00:00 98.7 73 12 129/58 (81) 94 06/05/17 23:00 77 24 111/55 (73) 95 06/05/17 22:00 76 20 143/64 (90) 94 06/05/17 22:00 68 06/05/17 21:13 98 Nasal Cannula 21 10/7/17 21:00 86 24 136/70 (92) 96 06/05/17 20:00 67 06/05/17 20:00 99.0 75 16 139/76 (97) 97 06/05/17 19:00 99.0 77 12 158/68 (98) 97 06/05/17 18:00 66 06/05/17 18:00 98.1 66 19 168/72 (104) 99 06/05/17 17:00 71 06/05/17 17:00 98.5 71 24 154/75 (101) 100 I/O 06/05/17 06/05/17 06/05/17 06/06/17 06/06/17 06/06/17 07:00 15:00 23:00 07:00 15:00 23:00 Intake Total 2436 ml 811 ml 900 ml 115 ml 911 ml 1100 ml Output Total 1200 ml 1300 ml 1600 ml Balance 1236 ml 811 ml -400 ml -1485 ml 911 ml 1100 ml Intake Oral 900 ml 0 ml IV Total 1591 ml 101 ml 100 ml 101 ml 1100 ml Packed Cells 800 ml 400 ml 800 ml Blood Product IV Normal Saline Flush 45 ml 10 ml 15 ml 10 ml Other 300 ml Output Urine Total 1200 ml 1300 ml 1600 ml Stool Total 0 ml # Bowel Movements 2 2 Laboratory Laboratory Tests Test 06/05/17 16:09 06/05/17 21:52 06/06/17 01:02 06/06/17 12:30 Hemoglobin 8.0 7.8 7.3 Blood Urea Nitrogen 16 Creatinine 0.87 Random Glucose 91 Total Protein 5.4 Albumin 2.3 Calcium Level 6.9 Phosphorus Level 2.2 Magnesium Level 2.0 Alkaline Phosphatase 71 Aspartate Amino Transf (AST/SGOT) 153 Alanine Aminotransferase (ALT/SGPT) 109 Total Bilirubin 1.2 Sodium Level 139 Potassium Level 3.9 Chloride Level 110 Carbon Dioxide Level 22.2 Anion Gap 7 Estimat Glomerular Filtration Rate 94 Protein Corrected Calcium 7.8 Total Creatine Kinase 129 Test 06/06/17 13:16 White Blood Count 9.4 Red Blood Count 3.29 Hemoglobin 9.4 Hematocrit 28.3 Mean Corpuscular Volume 86.1 Mean Corpuscular Hemoglobin 28.7 Mean Corpuscular Hemoglobin Concent 33.3 Red Cell Distribution Width 16.9 Platelet Count 77 Mean Platelet Volume 10.2 Neutrophils (%) (Auto) 81.7 Lymphocytes (%) (Auto) 6.8 Monocytes (%) (Auto) 8.8 Eosinophils (%) (Auto) 2.3 Basophils (%) (Auto) 0.4 Neutrophils # (Auto) 7.7 Lymphocytes # (Auto) 0.6 Monocytes # (Auto) 0.8 Eosinophils # (Auto) 0.2 Basophils # (Auto) 0.0 CBC Comment AUTO DIFF Differential Comment AUTO DIFF CONFIRMED Platelet Estimate LOW Platelet Morphology Comment NORMAL Ovalocytes 1+ Prothrombin Time 12.9 Prothromb Time International Ratio 1.2 Activated Partial Thromboplast Time 24.4 Fibrinogen 270 Imaging Last Impressions Abdomen/Pelvis CT 06/05/17 0000 Signed Impressions: Service Date/Time: Monday, June 05, 2017 20:39 - CONCLUSION: 1. Cirrhosis and portal hypertension 2. Basilar atelectasis. 3. Calyceal diverticulum with stone right kidney. 4. Bowel wall thickening is noted likely related to the ascites. Eliot Samson MD Chest X-Ray 06/04/17 0000 Signed Impressions: Service Date/Time: Sunday, June 04, 2017 21:19 - CONCLUSION: No acute disease. Triston Varela MD Physical Exam HEENT: normocephalic; atraumatic; no jaundice. Throat is clear. NECK: Neck is supple, no JVD, no lymphadenopathy. CHEST: Chest is clear to auscultation and percussion. CARDIAC: Regular rate and rhythm with no murmur gallop or rubs. ABDOMEN: Soft, obese, nondistended, nontender; bowel sounds are present in all four quadrants. EXTREMITIES: No clubbing, cyanosis, or edema. SKIN: Normal; no rash; no jaundice. FLY RAISER LOCKSTITCH: No focal deficits; alert and oriented times three. (Ashley,Sarath EXHIBIT ARTIST) Assessment and Plan Plan ASSESSMENT - anemia, melena - hgb 5.2 on admission. still black stools today, likely residual, hgb today 9.4. S/P EGD (06/05/17)---> esophageal varices grade 2 -s/p banding-4 bands applied, gastric varices duodenal bulb polyps-biopsy, bx pending. CT (06/05/17) ----> cirrhosis, basilar atelectasis, calyceal diverticulum and stone right kidney, bowel wall thickening is noted likely related to ascites - cirrhosis - likely 2/2 ETOH, hx heavy drinking. prior US showing hepatomegaly and heterogenous echotexture. mild elev LFTs slightly improved from last admission PLAN - Low sodium diet - EGD in 8 weeks - Await bx - Cont. Octreotide - Cont PPI - Cont. propranolol - Cont. lactulose - Cont. lasix - cont. Aldactone - monitor HH - transfuse as needed - ETOH cessation - further recs to follow This pt seen by myself and Dr Zayas and this note is written on her behalf (Sarath Ramirez) Physician Comments seen, examined agree with above colonoscopy if agrees, refusing for now ok to transfer to floor d/c octreotide in am switch to po Protonix once bag finished (Bere Zayas MD) Sarath Ramirez Jun 06, 2017 16:13 Bere Zayas MD Jun 06, 2017 19:26
[2017-06-06] MEDS: ISOSORBIDE DINITRATE 5 MG TAB PO SCH (17:09)
[2017-06-06] MEDS: cefTRIAXone INJ 1,000 MG in SODIUM CHLORIDE 0.9% INJ 100 ML IV SCH (23:02)
[2017-06-07] VITALS (11 sets, daily range): BP systolic 97–120; BP diastolic 52–67; PULSE 52–71; RESP 10–24; TEMP 98.9; O2SAT 95–98
[2017-06-07 00:57] LABS: HEMATOCRIT 27.4 % (39.0-51.0)
[2017-06-07 01:22] LABS: REVIEW FLAG FINAL
[2017-06-07] MEDS: INSULIN NovoLIN REGULAR SUPPLEMENTAL SCALE SQ SCH ×3 (03:00→12:00)
[2017-06-07] MEDS: CHLORHEXIDINE GLUCONATE 2 % 1 PACK (2 CLOTHS) TOP SCH (03:34)
[2017-06-07] MEDS: RESP: ALBUTEROL 2.5 MG/IPRATROPIUM 0.5 MG NEB (SCH) INH ×2 (04:00→09:45)
[2017-06-07] MEDS: PROPRANOLOL HCL 10 MG TAB PO SCH ×2 (04:42→13:20)
[2017-06-07 05:02] LABS: AUTOMATED NEUTROPHIL # 8.9 TH/MM3 (1.8-7.7); BASOPHIL # 0.1 TH/MM3 (0-0.2); BASOPHIL % 0.7 % (0.0-2.0); EOSINOPHIL # 0.3 TH/MM3 (0-0.4); EOSINOPHIL % 2.4 % (0.0-4.0); LYMPH % 7.4 % (9.0-44.0); LYMPHOCYTE # 0.8 TH/MM3 (1.0-4.8); MEAN CELL VOLUME 86.7 FL (80.0-100.0); MEAN CORPUSCULAR HEMOGLOBIN 28.5 PG (27.0-34.0); MEAN CORPUSCULAR HGB CONC 32.9 % (32.0-36.0); MONO % 9.4 % (0.0-8.0); NEUT % 80.1 % (16.0-70.0); PLATELET COUNT 81 TH/MM3 (150-450); RED BLOOD COUNT 3.35 MIL/MM3 (4.50-5.90); RED CELL DISTRIBUTION WIDTH 16.8 % (11.6-17.2); WHITE BLOOD COUNT 11.1 TH/MM3 (4.0-11.0)
[2017-06-07 05:05] LABS: HEMO FLAGS AUTO DIFF
[2017-06-07 05:31] LABS: CALCIUM-PROTEIN CORRECTED 8.1 MG/DL (8.5-10.1); TOTAL BILIRUBIN ADULT 1.3 MG/DL (0.2-1.0)
[2017-06-07 06:52] LABS: POLYCHROMASIA 2.3 % (0.0-1.9)
[2017-06-07 06:53] LABS: PLATELET ESTIMATE SMEAR LOW (NORMAL); PLATELET MORPHOLOGY NORMAL (NORMAL); SCAN/DIFF AUTO DIFF CONFIRMED
[2017-06-07] MEDS: ISOSORBIDE DINITRATE 5 MG TAB PO SCH ×2 (08:31→13:20)
[2017-06-07] MEDS: FOLIC ACID 1 MG TAB PO SCH (08:31)
[2017-06-07] MEDS: MULTIVITAMIN TAB PO SCH (08:32)
[2017-06-07] MEDS: DOCUSATE SODIUM 50 MG/SENNA 8.6 MG TAB PO SCH (08:33)
[2017-06-07] MEDS: THIAMINE INJ 100 MG in SODIUM CHLORIDE 0.9% INJ 100 ML IV SCH (08:36)
[2017-06-07] MEDS ORDERED: SPIRONOLACTONE 25 MG TAB PO SCH (09:00)
[2017-06-07] MEDS ORDERED: FUROSEMIDE 20 MG TAB PO SCH (09:00)
[2017-06-07] MEDS ORDERED: PANTOPRAZOLE SOD 40 MG DELAYED RELEASE TAB PO SCH (09:00)
--- NOTE | 2017-06-07 12:46 | HHI.PR ---
Subjective Remarks nurse specialist Notes: The patient is a 49-year-old male with past medical history of cirrhosis of liver secondary to EtOH abuse with previous esophageal varices and EtOH use. He presented to [facility] ED with a history of nausea, melena and generalized weakness. The patient also reports shortness of breath with exertion and feeling dizzy. He was recently discharged from [place] after he was admitted back on May 27 with upper GI bleed and at that time he underwent upper endoscopy on May [address] Brenner which showed severe gastropathy with grade I to II esophageal varices without any evidence of active bleeding. On arrival to the ER he was tachycardiac with heart rate of 115, however, blood pressure is 132/58. The patient denies any use of aspirin. He does not take any medications at home. The patient states that he quit drinking 1 week ago and normally he drinks two to-three cocktails a week and twice on the weekend. In the ER he was found to have a hemoglobin of 5.[address] Zayas from GI service was notified and the patient scheduled to receive 2 units of PRBCs. In the ER he was given 1 liter bolus of normal saline and placed on octreotide and Protonix drips. He denies any orthopnea, PND or edema of lower extremities. In addition, he denies any hematemesis, hemoptysis. On a previous admission an ultrasound of the abdomen from May 28 showed mild thickening of gallbladder wall. No stones or sludge identified. No evidence of any masses or biliary obstruction and no evidence of hydronephrosis. The patient states the last time he had paracentesis approximately in 2012. 06/05: Status post 2 units PRBCs. Hemodynamically stable. Smells of melena. Abdominal pain resolved. Resting in bed in no acute distress currently. 06/06: Afebrile. Receiving 2 additional units of PRBC today. Noted 4 bands for esophageal varices yesterday. No current stigmata of bleeding. Diuresing per GI. Okay to transfer to floor. Hospitalist Notes: 06/07: Seen in his bedroom, stable no nausea, vomit or diarrhea, okay from GI specialist to discharge and follow up with doctor Zayas in one week. Objective Vital Signs Date Time Temp Pulse Resp B/P (MAP) Pulse Ox O2 Delivery O2 Flow Rate FiO2 06/07/17 09:45 96 21 06/07/17 06:00 55 06/07/17 06:00 55 16 97/52 (67) 95 06/07/17 05:00 52 20 120/64 (82) 98 06/07/17 04:00 71 06/07/17 04:00 98.9 71 24 115/57 (76) 97 06/07/17 03:00 63 22 103/53 (70) 98 06/07/17 02:00 61 06/07/17 02:00 61 20 116/67 (83) 97 06/07/17 01:00 61 18 114/56 (75) 96 06/07/17 00:00 98.9 66 10 110/55 (73) 96 06/07/17 00:00 68 06/06/17 23:00 64 20 111/57 (75) 97 06/06/17 22:00 67 24 129/74 (92) 98 06/06/17 22:00 66 06/06/17 21:00 67 20 104/53 (70) 97 06/06/17 20:22 96 21 06/06/17 20:00 65 12 129/72 (91) 98 06/06/17 20:00 67 06/06/17 19:00 99.0 64 20 109/53 (71) 97 06/06/17 18:00 65 06/06/17 18:00 98.7 65 22 100/53 (69) 98 06/06/17 17:00 98.9 64 25 126/96 (106) 98 06/06/17 17:00 64 06/06/17 16:00 67 06/06/17 16:00 99.0 70 25 117/56 (76) 96 06/06/17 15:00 98.3 64 20 125/68 (87) 98 06/06/17 15:00 64 06/06/17 14:00 98.7 67 19 115/68 (84) 95 06/06/17 14:00 67 06/06/17 13:00 65 06/06/17 13:00 98.5 65 26 123/70 (87) 97 I/O 06/06/17 06/06/17 06/06/17 06/07/17 06/07/17 06/07/17 07:00 15:00 23:00 07:00 15:00 23:00 Intake Total 115 ml 911 ml 1965 ml 900.5 ml Output Total 1600 ml 1100 ml 1400 ml Balance -1485 ml 911 ml 865 ml -499.5 ml Intake Oral 0 ml 600 ml 200 ml IV Total 100 ml 101 ml 1365 ml 700.5 ml Packed Cells 800 ml Blood Product IV Normal Saline Flush 15 ml 10 ml Output Urine Total 1600 ml 1100 ml 1400 ml Stool Total 0 ml # Bowel Movements 1 0 Result Diagram: 06/07/17 0445 06/07/17 0445 Imaging Last Impressions Abdomen/Pelvis CT 06/05/17 0000 Signed Impressions: Service Date/Time: Monday, June 05, 2017 20:39 - CONCLUSION: 1. Cirrhosis and portal hypertension 2. Basilar atelectasis. 3. Calyceal diverticulum with stone right kidney. 4. Bowel wall thickening is noted likely related to the ascites. Eliot Samson MD Chest X-Ray 06/04/17 0000 Signed Impressions: Service Date/Time: Sunday, June 04, 2017 21:19 - CONCLUSION: No acute disease. Triston Varela MD Procedures EGD Other Results Laboratory Tests Test 06/04/17 19:55 06/04/17 23:25 06/05/17 00:00 06/05/17 08:01 Troponin I 0.03 NG/ML Nasal Screen MRSA (PCR) MRSA NOT DETECTED Urine Color YELLOW Urine Turbidity CLEAR Urine pH 5.5 Urine Specific Porter 1.018 Urine Protein NEG mg/dL Urine Glucose (UA) NEG mg/dL Urine Ketones NEG mg/dL Urine Occult Blood NEG Urine Nitrite NEG Urine Bilirubin NEG Urine Urobilinogen LESS THAN 2.0 MG/DL Urine Leukocyte Esterase NEG Urine WBC LESS THAN 1 /hpf Urine Squamous Epithelial Cells <1 /hpf Urine Hyaline Casts 1 /lpf Microscopic Urinalysis Comment CULT NOT INDICATED Toxic Granulation 1+ Test 06/06/17 12:30 06/06/17 13:16 06/07/17 04:45 Total Creatine Kinase 129 U/L Ovalocytes 1+ Prothrombin Time 12.9 SEC Prothromb Time International Ratio 1.2 RATIO Activated Partial Thromboplast Time 24.4 SEC Fibrinogen 270 mg/dL White Blood Count 11.1 TH/MM3 Red Blood Count 3.35 MIL/MM3 Hemoglobin 9.5 GM/DL Hematocrit 29.0 % Mean Corpuscular Volume 86.7 FL Mean Corpuscular Hemoglobin 28.5 PG Mean Corpuscular Hemoglobin Concent 32.9 % Red Cell Distribution Width 16.8 % Platelet Count 81 TH/MM3 Mean Platelet Volume 10.4 FL Neutrophils (%) (Auto) 80.1 % Lymphocytes (%) (Auto) 7.4 % Monocytes (%) (Auto) 9.4 % Eosinophils (%) (Auto) 2.4 % Basophils (%) (Auto) 0.7 % Neutrophils # (Auto) 8.9 TH/MM3 Lymphocytes # (Auto) 0.8 TH/MM3 Monocytes # (Auto) 1.0 TH/MM3 Eosinophils # (Auto) 0.3 TH/MM3 Basophils # (Auto) 0.1 TH/MM3 CBC Comment AUTO DIFF Differential Comment AUTO DIFF CONFIRMED Platelet Estimate LOW Platelet Morphology Comment NORMAL Polychromasia 2.3 % Blood Urea Nitrogen 16 MG/DL Creatinine 0.88 MG/DL Random Glucose 82 MG/DL Total Protein 5.5 GM/DL Albumin 2.4 GM/DL Calcium Level 7.2 MG/DL Phosphorus Level 2.7 MG/DL Magnesium Level 2.0 MG/DL Alkaline Phosphatase 75 U/L Aspartate Amino Transf (AST/SGOT) 157 U/L Alanine Aminotransferase (ALT/SGPT) 134 U/L Total Bilirubin 1.3 MG/DL Sodium Level 137 MEQ/L Potassium Level 4.0 MEQ/L Chloride Level 107 MEQ/L Carbon Dioxide Level 22.0 MEQ/L Anion Gap 8 MEQ/L Estimat Glomerular Filtration Rate 93 ML/MIN Protein Corrected Calcium 8.1 MG/DL Ammonia 71 MCMOL/L Objective Remarks GENERAL: Well developed in no acute distress. SKIN: Warm and dry. HEAD: Atraumatic. Normocephalic. EYES: Pupils equal and round about 3 mm bilaterally and reactive. No scleral icterus. No injection or drainage. ENT: No nasal bleeding or discharge. Mucous membranes pink and moist. NECK: Trachea midline. No JVD. CARDIOVASCULAR: Regular rate and rhythm. S1, S2. No S4. Without murmur RESPIRATORY: Clear to auscultation. Breath sounds equal bilaterally. GASTROINTESTINAL: Abdomen thoroughly protuberant. Positive ascites with splenomegaly noted Nontender. Hypoactive bowel sounds are appreciated.. MUSCULOSKELETAL: Extremities without significant peripheral edema. No obvious deformities. NEUROLOGICAL: Awake and alert. No obvious cranial nerve deficits. Motor grossly within normal limits. Five out of 5 muscle strength in the arms and legs. Normal speech. PSYCHIATRIC: Appropriate mood and affect; insight and judgment normal. Medications and IVs Current Medications Medications (Trade) Dose Ordered Sig/Koby Route Start Time Stop Time Status Last Admin (NS Flush) 2 ml UNSCH PRN IVF 06/04/17 20:00 (NS Flush) 2 ml UNSCH PRN IVF 06/04/17 20:15 (Duoneb Neb) 1 ampule Q6HR NEB INH 06/04/17 22:00 06/06/17 08:01 Miscellaneous Information 1 Q361D XX 06/04/17 21:15 06/04/17 21:15 (Chlorhexidine 2% Cloth) 3 pack Taper DAILY@04 TOP 06/05/17 04:00 06/01/18 03:59 06/07/17 03:34 (Chlorhexidine 2% Cloth) 3 pack UNSCH PRN TOP 06/04/17 21:15 (Shea-Colace) 1 tab BID PO 06/05/17 09:00 (Milk Of Magnesia Liq) 30 ml Q12H PRN PO 06/04/17 21:15 (Senokot) 17.2 mg Q12H PRN PO 06/04/17 21:15 (Dulcolax Supp) 10 mg DAILY PRN RECTAL 06/04/17 21:15 (Lactulose Liq) 30 ml DAILY PRN PO 06/04/17 21:15 Ceftriaxone Sodium 1000 mg/ Sodium Chloride 100 ml @ 200 mls/hr Q24H IV 06/04/17 23:00 06/06/17 23:02 (D50w (Vial) Inj) 50 ml UNSCH PRN IV PUSH 06/04/17 21:30 (Glucagon Inj) 1 mg UNSCH PRN OTHER 06/04/17 21:30 (Theragran) 1 tab DAILY PO 06/05/17 09:00 06/07/17 08:32 (Folate) 1 mg DAILY PO 06/05/17 09:00 06/07/17 08:31 (Albuterol Neb) 2.5 mg Q2HR NEB PRN NEB 06/05/17 07:15 Thiamine HCl 100 mg/Sodium Chloride 101 ml @ 101 mls/hr DAILY IV 06/05/17 09:00 06/07/17 08:36 (Inderal) 10 mg Q8HR PO 06/06/17 14:00 06/07/17 04:42 (Isordil) 5 mg TIDAC PO 06/06/17 17:00 06/07/17 08:31 (Lasix) 20 mg DAILY PO 06/07/17 09:00 06/07/17 08:32 (Aldactone) 25 mg DAILY PO 06/07/17 09:00 06/07/17 08:31 (NovoLIN R SUPPLEMENTAL SCALE) 1 ACHS AND 3AM SQ 06/06/17 17:00 06/06/17 17:00 (Librium) 10 mg TID PO 06/06/17 18:00 06/07/17 08:31 (Protonix) 40 mg DAILY PO 06/07/17 09:00 06/07/17 08:31 A/P Assessment and Plan 1. EtOH on Thiamine 100 mg daily, Folate 1 mg daily, Multivitamin 1 tablet daily low dose Chlordiazepoxide 10 mg TID, stable no withdrawal 2. Upper GI bleed, history of Esophageal Varices Grade 1 and 2, Telas banding grade 2 esophageal varices x 4 Gastric Varices, Ceftriaxone 1 gram daily Ascites Hypoalbuminemia Continue on Protonix drip at 8 mg an hour and Sandostatin drip at 50 micrograms an hour Status post GI specialist evaluation, repeated the EGD and found esophageal varices grade 2 x 4 bands, Gastric varices, Duodenal biopsies Last EEG 05/1819 Grade 1-2 esophageal varices no active bleeding deflated with insufflation of air. CT abdomen/pelvis revealed liver cirrhosis with nodular appearance. Moderate ascites. Splenomegaly at 16 cm. Esophageal and gastric varices. 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 Started on furosemide 20 mg daily and spironolactone 25 mg daily [id number] mill grams 3 times a day and Isordil 5 mg 3 times a day for varices 3. Acute Kidney Injury Improved/History of Right Nephrolithiasis/Right renal calyceal diverticulum/Right renal cyst No signs of Hydronephrosis. 4. Acute blood loss anemia status post blood transfusion 4 units of PRBCs Access - Utilize peripheral IV. Central line if indicated Prophylaxis - GI - pantoprazole/Sandostatin - DVT - SCD/pharmacological prophylaxis contra indicated with upper GI bleed Okay to discharge Home as per GI specialist and follow with Doctor Marquez in one week. Discussed with patient and nurse Miss Sanabria and all questions answered to the best of my abilities. Discharge Planning discharge home today. Beck Figueroa MD Jun 07, 2017 12:46
[2017-06-07] MEDS ORDERED: ISOS5TAB PO (13:33)
[2017-06-07] MEDS ORDERED: VITA100T54 PO (13:33)
[2017-06-07] MEDS ORDERED: SPIR25 PO (13:33)
[2017-06-07] MEDS ORDERED: FOLI1TAB6 PO (13:33)
[2017-06-07] MEDS ORDERED: PROP10TA6 PO (13:33)
[2017-06-07] MEDS ORDERED: THERTAB15 PO (13:33)
[2017-06-07] MEDS ORDERED: FURO20TA PO (13:33)
[2017-06-07] MEDS ORDERED: SYMB160A INH (13:33)
[2017-06-07] MEDS ORDERED: PANT40TA3 PO (13:33)
--- NOTE | 2017-06-07 13:40 | HHI.DS ---
Discharge Summary Admission Date Jun 04, 2017 at 20:49 Discharge Date: Jun 07, 2017 Admitting Diagnosis GI bleed/symptomatic anemia (1) Cirrhosis ICD Code: K74.60 - Unspecified cirrhosis of liver Diagnosis: Principal (2) GI bleed ICD Code: K92.2 - Gastrointestinal hemorrhage, unspecified Diagnosis: Principal Status: Acute (3) Symptomatic anemia ICD Code: D64.9 - Anemia, unspecified Diagnosis: Principal Status: Acute Procedures EGD with 4 band placement due to Esophageal and Gastric Varices Brief History - From Admission The patient is a 49-year-old male with past medical history of cirrhosis of liver secondary to EtOH abuse with previous esophageal varices and EtOH use. He presented to [facility] ED with a history of nausea, melena and generalized weakness. The patient also reports shortness of breath with exertion and feeling dizzy. He was recently discharged from [facility] after he was admitted back on May 27 with upper GI bleed and at that time he underwent upper endoscopy on May [address] Brenner which showed severe gastropathy with grade I to II esophageal varices without any evidence of active bleeding. On arrival to the ER he was tachycardiac with heart rate of 115, however, blood pressure is 132/58. The patient denies any use of aspirin. He does not take any medications at home. The patient states that he quit drinking 1 week ago and normally he drinks [id number] cocktails a week and twice on the weekend. In the ER he was found to have a hemoglobin of 5.[address] Zayas from GI service was notified and the patient scheduled to receive 2 units of PRBCs. In the ER he was given 1 liter bolus of normal saline and placed on octreotide and Protonix drips. He denies any orthopnea, PND or edema of lower extremities. In addition, he denies any hematemesis, hemoptysis. On a previous admission an ultrasound of the abdomen from May 28 showed mild thickening of gallbladder wall. No stones or sludge identified. No evidence of any masses or biliary obstruction and no evidence of hydronephrosis. The patient states the last time he had paracentesis approximately in 2012. CBC/BMP: 06/07/17 0445 06/07/17 0445 Significant Findings Laboratory Tests Test 06/04/17 19:55 06/04/17 23:25 06/05/17 00:00 06/05/17 08:01 White Blood Count 23.1 TH/MM3 (4.0-11.0) 12.6 TH/MM3 (4.0-11.0) Red Blood Count 1.84 MIL/MM3 (4.50-5.90) 2.13 MIL/MM3 (4.50-5.90) Hemoglobin 5.2 GM/DL (13.0-17.0) 6.1 GM/DL (13.0-17.0) Hematocrit 17.2 % (39.0-51.0) 18.5 % (39.0-51.0) Mean Corpuscular Hemoglobin Concent 30.5 % (32.0-36.0) Red Cell Distribution Width 17.5 % (11.6-17.2) 19.9 % (11.6-17.2) Mean Platelet Volume 11.1 FL (7.0-11.0) Neutrophils (%) (Auto) 83.1 % (16.0-70.0) 78.0 % (16.0-70.0) Lymphocytes (%) (Auto) 6.9 % (9.0-44.0) Monocytes (%) (Auto) 9.1 % (0.0-8.0) 11.0 % (0.0-8.0) Neutrophils # (Auto) 19.2 TH/MM3 (1.8-7.7) 9.8 TH/MM3 (1.8-7.7) Monocytes # (Auto) 2.1 TH/MM3 (0-0.9) 1.4 TH/MM3 (0-0.9) Prothrombin Time 13.9 SEC (9.8-11.6) Activated Partial Thromboplast Time 20.7 SEC (24.3-30.1) Blood Urea Nitrogen 45 MG/DL (7-18) 40 MG/DL (7-18) Creatinine 1.38 MG/DL (0.60-1.30) Random Glucose 157 MG/DL (74-106) 112 MG/DL (74-106) Total Protein 5.9 GM/DL (6.4-8.2) 5.2 GM/DL (6.4-8.2) Albumin 2.6 GM/DL (3.4-5.0) 2.4 GM/DL (3.4-5.0) Calcium Level 8.0 MG/DL (8.5-10.1) 7.2 MG/DL (8.5-10.1) Aspartate Amino Transf (AST/SGOT) 55 U/L (15-37) 158 U/L (15-37) Total Bilirubin 1.3 MG/DL (0.2-1.0) Potassium Level 5.2 MEQ/L (3.5-5.1) Carbon Dioxide Level 16.8 MEQ/L (21.0-32.0) Estimat Glomerular Filtration Rate 55 ML/MIN (>89) 78 ML/MIN (>89) Platelet Count 89 TH/MM3 (150-450) Toxic Granulation 1+ (NORMAL) Platelet Estimate LOW (NORMAL) Platelet Morphology Comment ENLARGED (NORMAL) Polychromasia 2.4 % (0.0-1.9) Ovalocytes 1+ (NORMAL) Alanine Aminotransferase (ALT/SGPT) 83 U/L (12-78) Chloride Level 111 MEQ/L (98-107) Protein Corrected Calcium 8.2 MG/DL (8.5-10.1) Test 06/05/17 16:09 06/05/17 21:52 06/06/17 01:02 06/06/17 12:30 Hemoglobin 8.0 GM/DL (13.0-17.0) 7.8 GM/DL (13.0-17.0) 7.3 GM/DL (13.0-17.0) Total Protein 5.4 GM/DL (6.4-8.2) Albumin 2.3 GM/DL (3.4-5.0) Calcium Level 6.9 MG/DL (8.5-10.1) Phosphorus Level 2.2 MG/DL (2.5-4.9) Aspartate Amino Transf (AST/SGOT) 153 U/L (15-37) Alanine Aminotransferase (ALT/SGPT) 109 U/L (12-78) Total Bilirubin 1.2 MG/DL (0.2-1.0) Chloride Level 110 MEQ/L (98-107) Protein Corrected Calcium 7.8 MG/DL (8.5-10.1) Test 06/06/17 13:16 06/07/17 00:09 06/07/17 04:45 Red Blood Count 3.29 MIL/MM3 (4.50-5.90) 3.35 MIL/MM3 (4.50-5.90) Hemoglobin 9.4 GM/DL (13.0-17.0) 9.2 GM/DL (13.0-17.0) 9.5 GM/DL (13.0-17.0) Hematocrit 28.3 % (39.0-51.0) 27.4 % (39.0-51.0) 29.0 % (39.0-51.0) Platelet Count 77 TH/MM3 (150-450) 81 TH/MM3 (150-450) Neutrophils (%) (Auto) 81.7 % (16.0-70.0) 80.1 % (16.0-70.0) Lymphocytes (%) (Auto) 6.8 % (9.0-44.0) 7.4 % (9.0-44.0) Monocytes (%) (Auto) 8.8 % (0.0-8.0) 9.4 % (0.0-8.0) Lymphocytes # (Auto) 0.6 TH/MM3 (1.0-4.8) 0.8 TH/MM3 (1.0-4.8) Platelet Estimate LOW (NORMAL) LOW (NORMAL) Ovalocytes 1+ (NORMAL) Prothrombin Time 12.9 SEC (9.8-11.6) White Blood Count 11.1 TH/MM3 (4.0-11.0) Neutrophils # (Auto) 8.9 TH/MM3 (1.8-7.7) Monocytes # (Auto) 1.0 TH/MM3 (0-0.9) Polychromasia 2.3 % (0.0-1.9) Total Protein 5.5 GM/DL (6.4-8.2) Albumin 2.4 GM/DL (3.4-5.0) Calcium Level 7.2 MG/DL (8.5-10.1) Aspartate Amino Transf (AST/SGOT) 157 U/L (15-37) Alanine Aminotransferase (ALT/SGPT) 134 U/L (12-78) Total Bilirubin 1.3 MG/DL (0.2-1.0) Protein Corrected Calcium 8.1 MG/DL (8.5-10.1) Ammonia 71 MCMOL/L (11-32) Imaging Last Impressions Abdomen/Pelvis CT 06/05/17 0000 Signed Impressions: Service Date/Time: Monday, June 05, 2017 20:39 - CONCLUSION: 1. Cirrhosis and portal hypertension 2. Basilar atelectasis. 3. Calyceal diverticulum with stone right kidney. 4. Bowel wall thickening is noted likely related to the ascites. Eliot Samson MD Chest X-Ray 06/04/17 0000 Signed Impressions: Service Date/Time: Sunday, June 04, 2017 21:19 - CONCLUSION: No acute disease. Triston Varela MD PE at Discharge GENERAL: Well developed in no acute distress. SKIN: Warm and dry. HEAD: Atraumatic. Normocephalic. EYES: Pupils equal and round about 3 mm bilaterally and reactive. No scleral icterus. No injection or drainage. ENT: No nasal bleeding or discharge. Mucous membranes pink and moist. NECK: Trachea midline. No JVD. CARDIOVASCULAR: Regular rate and rhythm. S1, S2. No S4. Without murmur RESPIRATORY: Clear to auscultation. Breath sounds equal bilaterally. GASTROINTESTINAL: Abdomen thoroughly protuberant. Positive ascites with splenomegaly noted Nontender. Hypoactive bowel sounds are appreciated.. MUSCULOSKELETAL: Extremities without significant peripheral edema. No obvious deformities. NEUROLOGICAL: Awake and alert. No obvious cranial nerve deficits. Motor grossly within normal limits. Five out of 5 muscle strength in the arms and legs. Normal speech. PSYCHIATRIC: Appropriate mood and affect; insight and judgment normal. Hospital Course grievance and appeals specialist Notes: The patient is a 49-year-old male with past medical history of cirrhosis of liver secondary to EtOH abuse with previous esophageal varices and EtOH use. He presented to [facility] ED with a history of nausea, melena and generalized weakness. The patient also reports shortness of breath with exertion and feeling dizzy. He was recently discharged from [facility] after he was admitted back on May 27 with upper GI bleed and at that time he underwent upper endoscopy on May [address] Brenner which showed severe gastropathy with grade I to II esophageal varices without any evidence of active bleeding. On arrival to the ER he was tachycardiac with heart rate of 115, however, blood pressure is 132/58. The patient denies any use of aspirin. He does not take any medications at home. The patient states that he quit drinking 1 week ago and normally he drinks two to-three cocktails a week and twice on the weekend. In the ER he was found to have a hemoglobin of 5.[address] Zayas from GI service was notified and the patient scheduled to receive 2 units of PRBCs. In the ER he was given 1 liter bolus of normal saline and placed on octreotide and Protonix drips. He denies any orthopnea, PND or edema of lower extremities. In addition, he denies any hematemesis, hemoptysis. On a previous admission an ultrasound of the abdomen from May 28 showed mild thickening of gallbladder wall. No stones or sludge identified. No evidence of any masses or biliary obstruction and no evidence of hydronephrosis. The patient states the last time he had paracentesis approximately in 2012. 06/05: Status post 2 units PRBCs. Hemodynamically stable. Smells of melena. Abdominal pain resolved. Resting in bed in no acute distress currently. 06/06: Afebrile. Receiving 2 additional units of PRBC today. Noted 4 bands for esophageal varices yesterday. No current stigmata of bleeding. Diuresing per GI. Okay to transfer to floor. Hospitalist Notes: 06/07: Seen in his bedroom, stable no nausea, vomit or diarrhea, okay from GI specialist to discharge and follow up with doctor Zayas in one week. Assessment and Plan 1. EtOH on Thiamine 100 mg daily, Folate 1 mg daily, Multivitamin 1 tablet daily low dose Chlordiazepoxide 10 mg TID, stable no withdrawal 2. Upper GI bleed, history of Esophageal Varices Grade 1 and 2, Telas banding grade 2 esophageal varices x 4 Gastric Varices, Ceftriaxone 1 gram daily Ascites Hypoalbuminemia Continue on Protonix drip at 8 mg an hour and Sandostatin drip at 50 micrograms an hour Status post GI specialist evaluation, repeated the EGD and found esophageal varices grade 2 x 4 bands, Gastric varices, Duodenal biopsies Last EEG 05/1819 Grade 1-2 esophageal varices no active bleeding deflated with insufflation of air. CT abdomen/pelvis revealed liver cirrhosis with nodular appearance. Moderate ascites. Splenomegaly at 16 cm. Esophageal and gastric varices. 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 Started on furosemide 20 mg daily and spironolactone 25 mg daily [id number] mill grams 3 times a day and Isordil 5 mg 3 times a day for varices 3. Acute Kidney Injury Improved/History of Right Nephrolithiasis/Right renal calyceal diverticulum/Right renal cyst No signs of Hydronephrosis. 4. Acute blood loss anemia status post blood transfusion 4 units of PRBCs Access - Utilize peripheral IV. Central line if indicated Prophylaxis - GI - pantoprazole/Sandostatin - DVT - SCD/pharmacological prophylaxis contra indicated with upper GI bleed Okay to discharge Home as per GI specialist and follow with Doctor Marquez in one week. Discussed with patient and nurse Miss Sanabria and all questions answered to the best of my abilities. Discharge Planning discharge home today. Pt Condition on Discharge: Good Discharge Disposition: Discharge Home Discharge Time: > 30 minutes Discharge Instructions DIET: Follow Instructions for: Heart Healthy Diet Activities you can perform: Regular-No Restrictions Beck Figueroa MD Jun 07, 2017 13:40
== END 2017-06-07 14:05 | disposition home or self-care (01) | DRG 433 ==
LOC: NEPC 19:13 → EDBD 19:13 → NEDA 20:49 → HIME 23:15
PROVIDERS: ADMIT Internal Medicine; ATTEND Internal Medicine
PROC: 30233N1 Transfusion of Nonautologous Red Blood Cells into Peripheral Vein, Percutaneous Approach (ICD-10-PCS; principal; 2017-06-04)
PROC: 06L38CZ Occlusion of Esophageal Vein with Extraluminal Device, Via Natural or Artificial Opening Endoscopic (ICD-10-PCS; 2017-06-05)
PROC: 0DB98ZX Excision of Duodenum, Via Natural or Artificial Opening Endoscopic, Diagnostic (ICD-10-PCS; 2017-06-05)
DX: K70.31 Alcoholic cirrhosis of liver with ascites (principal); K92.1 Melena; N17.9 Acute kidney failure, unspecified; D62 Acute posthemorrhagic anemia; E88.09 Other disorders of plasma-protein metabolism, not elsewhere classified; E87.5 Hyperkalemia; N28.1 Cyst of kidney, acquired; I85.10 Secondary esophageal varices without bleeding; J98.11 Atelectasis; I86.4 Gastric varices; R16.1 Splenomegaly, not elsewhere classified; I10 Essential (primary) hypertension; R00.0 Tachycardia, unspecified; D72.829 Elevated white blood cell count, unspecified; K31.9 Disease of stomach and duodenum, unspecified; N20.0 Calculus of kidney; F10.10 Alcohol abuse, uncomplicated; F17.210 Nicotine dependence, cigarettes, uncomplicated
CPT/HCPCS: 36430; 71010; 74177; 80053; 81001; 82140; 82550; 82948; 83735; 84100; 84484; 85014; 85018; 85025; 85384; 85610; 85730; 86850; 86900; 86901; 86920; 87641; 88305; 93005; 94640; 94664; C9113; J0330; J0610; J0696; J2250; J2354; J3010; J3411; J7030; J7040; J7042; J7050; P9016; Q9963; Q9967